=== PATIENT | female | born 1995 | race Caucasian/White ===

== ENCOUNTER → 2018-01-11 13:02 | Outpatient (CLI) | payer OTHER, MEDICAID, SELFPAY ==
--- NOTE | 2018-01-11 | DI.US.S_ITS ---
PROCEDURE: US OB <= 14 WEEKS FETUS INDICATIONS: SIZE AND DATING OUTSIDE/PRIOR DATING DATA: Last menstrual period (LMP): 11/16/17. LMP-based estimated date of delivery (JUAN): 08/23/18. First dating scan (date and location): Today's study. Estimated date of delivery (JUAN) from first dating scan: 07/29. TECHNIQUE: Real-time scanning was performed of the fetus and maternal pelvic organs, with image documentation. Endovaginal scanning was also performed to better visualize the fetus and maternal ovaries. COMPARISON: None. FINDINGS: Embryo: [place]-rump length of 0.54 mm correlates with a gestational age of 6 weeks 2 days Measurement variability in dating: +/- 4 weeks by LMP, +/- 7 days by mean sac diameter (use before 6 weeks gestation if crown-rump length not able to be measured), +/- 5 days by crown-rump length (up to 8 weeks 6 days gestation), +/- 7 days by crown-rump length (up to 13 weeks 6 days gestation). Maternal organs: Ovaries normal. Limited images through the kidneys demonstrate no hydronephrosis. IMPRESSION: At this early stage of gestation cardiac activity is not invariably detected and for this reason a demise has not been established. demise with a crown-rump length of 7 mm or greater is the threshold for establishing that circumstance. Correlation with quantitative beta hCG and followup OB ultrasound may be warranted in this circumstance. On review of real-time cine loop imaging nascent cardiac activity without organized heart rate is considered likely present. In my opinion there is a significant likelihood that a viable gestation is present but this has not been definitively established as of this study. Dictated by: Palmer Dumont M.D. on 01/11/2018 at 14:38 Approved by: Palmer Dumont M.D. on 01/11/2018 at 14:50
== END ==
PROVIDERS: Visit Provider Family Medicine
DX: Z36.89 Encounter for other specified antenatal screening (principal); Z3A.01 Less than 8 weeks gestation of pregnancy
CPT/HCPCS: 76801; 76817

== ENCOUNTER → 2018-01-25 08:01 | Outpatient (CLI) | payer OTHER, MEDICAID, SELFPAY ==
--- NOTE | 2018-01-25 | DI.US.S_ITS ---
PROCEDURE: US OB <= 14 WEEKS FETUS INDICATIONS: VIABILITY OUTSIDE/PRIOR DATING DATA: Last menstrual period (LMP): 11/16/17. LMP-based estimated date of delivery (JUAN): 08/23/18 assuming viable . First dating scan (date and location): 01/11/18. Estimated date of delivery (JUAN) from first dating scan: cardiac activity was not observed. TECHNIQUE: Real-time scanning was performed of the fetus and maternal pelvic organs, with image documentation. Endovaginal scanning was also performed to better visualize the fetus and maternal ovaries. COMPARISON: [facility], OB <= 14 WEEKS FETUS, 01/11/2018, 13:38. FINDINGS: Embryo: Prior crown-rump length 01/11/18 at 5 mm, current crown-rump length is 4 mm. cardiac activity is not observed. Measurement variability in dating: +/- 4 weeks by LMP, +/- 7 days by mean sac diameter (use before 6 weeks gestation if crown-rump length not able to be measured), +/- 5 days by crown-rump length (up to 8 weeks 6 days gestation), +/- 7 days by crown-rump length (up to 13 weeks 6 days gestation). Maternal organs: Ovaries not evaluated. Limited images through the kidneys demonstrate no hydronephrosis. IMPRESSION: demise. The intrauterine gestational sac is irregular, flaccid. Low-level internal echoes are present within the amniotic fluid. Dictated by: Palmer Dumont M.D. on 01/25/2018 at 11:01 Approved by: Palmer Dumont M.D. on 01/25/2018 at 11:25
== END ==
PROVIDERS: Visit Provider Family Medicine
DX: O02.1 Missed abortion (principal)
CPT/HCPCS: 76801; 76817

== ENCOUNTER 2018-06-10 17:49 | Emergency (ER) | payer OTHER, MEDICAID, SELFPAY ==
[2018-06-10 18:03] VITALS: BP 127/66; PULSE 66; RESP 16; TEMP 36.8; O2SAT 100; BMI 42.9
--- NOTE | 2018-06-10 18:13 | DI.US.S_ITS ---
PROCEDURE: US OB <= 14 WEEKS FETUS INDICATIONS: SPOTTING, CRAMPING OUTSIDE/PRIOR DATING DATA: Last menstrual period (LMP): 04/09/18. LMP-based estimated date of delivery (JUAN): 01/14/19. First dating scan (date and location): 06/10/18 Estimated date of delivery (JUAN) from first dating scan: 01/18/19. TECHNIQUE: Real-time scanning was performed of the fetus and maternal pelvic organs, with image documentation. COMPARISON: [facility], OB <= 14 WEEKS FETUS, 01/25/2018, 8:11. FINDINGS: Embryo: Examination of the pelvis shows single intrauterine gestational sac with fetus seen. heart rate is 171 beats per minute. [place]-rump length is 1.8 cm. Estimated gestational age based on current study is 8 weeks 2 days. 2.3 x 0.6 x 1.1 cm subchorionic hematoma is seen adjacent to gestational sac. Measurement variability in dating: +/- 4 weeks by LMP, +/- 7 days by mean sac diameter (use before 6 weeks gestation if crown-rump length not able to be measured), +/- 5 days by crown-rump length (up to 8 weeks 6 days gestation), +/- 7 days by crown-rump length (up to 13 weeks 6 days gestation). Maternal organs: Ovaries are visualized and are within normal limits.. Limited images through the kidneys demonstrate no hydronephrosis. IMPRESSION: Single live intrauterine . Estimated gestational age is 8 weeks 2 days. heart rate is 171 beats per minute. Small subchorionic hematoma as above. Dictated by: Kelechi Plummer M.D. on 06/10/2018 at 19:19 Approved by: Kelechi Plummer M.D. on 06/10/2018 at 19:21
[2018-06-10 18:31] LABS: Add Manual Diff / Slide Review NO; Basophils Absolute Auto 0 /uL (0-100); Basophils Percent Auto 0.4 % (0-2); Eosinophils Absolute Auto 100 /uL (0-450); Eosinophils Percent Auto 0.7 % (2-4); Lymphocytes Absolute Auto 1900 /uL (1100-4500); Mean Corpuscular HGB Conc 32.5 % (30-36); Mean Corpuscular Hemoglobin 27.6 PG (26-34); Mean Corpuscular Volume 84.9 fL (80-100); Monocytes Absolute Auto 700 /uL (0-900); Monocytes Percent Auto 6.4 % (3-14); Neutrophils Absolute Auto 7800 /uL (1500-7000); Neutrophils Percent Auto 74.5 % (50-75); Platelet Count 267 X10^3/uL (150-400); Red Blood Cell Count 4.01 X10^6/uL (4.0-5.2); Red Cell Distribution Width 15.6 % (11.6-14.8); White Blood Cell Count 10.4 X10^3/uL (4.5-11.0)
[2018-06-10 18:38] LABS: Alanine Aminotransferase 61 IU/L (9-52); Albumin 3.9 g/dL (3.5-5.0); Albumin Globulin Ratio 1.1 (1.0-2.8); Alkaline Phosphatase 47 U/L (38-126); Aspartate Aminotransferase 51 IU/L (14-36); BUN Creatinine Ratio 16.7 (6-22); Bilirubin Total 0.6 mg/dL (0.2-1.3); Blood Urea Nitrogen 10 mg/dL (7-17); Carbon Dioxide 25 mmol/L (22-32); Chloride 103 mmol/L (98-107); Estimated Glomerular Filt Rate > 60.0 mL/min (>60); Globulin 3.7 g/dL (1.7-4.1); Glucose 71 mg/dL (70-100); HEMOLYSIS < 15 (0-50); Potassium 3.7 mmol/L (3.4-5.1); Sodium 137 mmol/L (137-145); Total Protein 7.6 g/dL (6.3-8.2)
--- NOTE | 2018-06-10 19:17 | ED.PREGNANCY ---
[facility] - [facility] Last Filed: 06/10/18 19:44> General Chief complaint: OB/Uterine Contractions Stated complaint: 8 WEEKS PREG/BLEEDING Time Seen by Provider: 06/10/18 18:14 Source: patient and family Mode of arrival: ambulatory Limitations: no limitations History of Present Illness HPI Narrative: The patient is a 22-year-old female nonsmoker who presents with her mother for a chief complaint of vaginal bleeding during . She does have history of a miscarriage in January. She is approximately 8 weeks along, has a ultrasound scheduled for the 15 of June. She is followed by Dr. Serna. She states that she started noticing some spotting when wiping yesterday, and noted that increased today. She denies any over abdominal cramping but does complain of some hip pain. She denies any dysuria urgency or frequency. She states she has not passed clots. She states that she has not risk for sexually transmitted infections and recently tested negative as well as had a normal Pap smear. She denies any fevers nausea vomiting or diarrhea. She denies any lightheadedness or dizziness. Related Data Previous Rx's Medication Instructions Recorded cephalexin 500 mg PO BID #20 cap 06/10/18 Allergies Allergy/AdvReac Type Severity Reaction Status Date / Time No Known Drug Allergies Allergy Verified 06/10/18 19:35 Review of Systems [facility] Last Filed: 06/10/18 19:44> Review of Systems GENERAL: Denies chills, fatigue, malaise, fever, sweats. HEENT: Denies sinus pain, ear pain, sore throat, difficulty swallowing, dizziness. RESPIRATORY: Denies dyspnea, cough, wheezing, hemoptysis, sputum. CARDIOVASCULAR: Denies chest pain, palpitations, orthopnea, edema, GASTROINTESTINAL: Denies nausea, vomiting, abdominal pain, diarrhea, constipation, melena. : See HPI MUSCULOSKELETAL: denies weakness, joint pain, or bony pain SKIN: Denies rash, skin lesions, or other NEUROLOGIC: Denies weakness, headache, numbness, change in speech, confusion, seizures, incoordination. PSYCHIATRIC: No concerning psychosocial issues. 12 point review of systems is negative except for those stated above PMFSH - [facility] Last Filed: 06/10/18 19:44> Past Medical History miscarriage Jan 2018 Exam <KATHY Santos-BC - Last Filed: 06/10/18 19:44> Narrative Exam Narrative: GENERAL: This is an obese, well-developed patient, appears anxious HEAD: Atraumatic. Normocephalic. No temporal or scalp tenderness. EYES: Pupils equal round and reactive. Extraocular motions intact. No scleral icterus. No injection or drainage. ENT: Nose without bleeding, purulent drainage or septal hematoma. Throat without erythema, tonsillar hypertrophy or exudate. Uvula midline. Airway patent. NECK: Trachea midline. No JVD or lymphadenopathy. Supple, nontender, no meningeal signs. CARDIOVASCULAR: Regular rate and rhythm without murmurs, gallops, or rubs. RESPIRATORY: Clear to auscultation. Breath sounds equal bilaterally. No wheezes, rales, or rhonchi. GASTROINTESTINAL: Abdomen soft, non-tender, nondistended. No hepato-splenomegaly, or palpable masses. No guarding. active bowel sounds all 4 quadrants. EXTREMITIES: No clubbing, cyanosis, or edema. No joint tenderness, effusion, or edema noted. BACK: Nontender without deformity or crepitance. No flank tenderness. NEURO: AOx3. SKIN: No rash or erythema. Initial Vital Signs Initial Vital Signs: Vital Signs Temperature 98.2 F 06/10/18 18:03 Pulse Rate 66 06/10/18 18:03 Respiratory Rate 16 06/10/18 18:03 Blood Pressure 127/66 06/10/18 18:03 Pulse Oximetry 100 06/10/18 18:03 <Quin Prado MD - Last Filed: 06/10/18 23:09> Initial Vital Signs Initial Vital Signs: Vital Signs Temperature 98.2 F 06/10/18 18:03 Pulse Rate 66 06/10/18 18:03 Respiratory Rate 16 06/10/18 18:03 Blood Pressure 127/66 06/10/18 18:03 Pulse Oximetry 100 06/10/18 18:03 Course <LUANNE SantosBC - Last Filed: 06/10/18 19:44> Orders Ordered: ED Orders 06/10/18 18:13 US OB <= 14 weeks fetus Stat 06/10/18 18:20 ABO RH Type Stat Beta HCG, Quant [HCG Quantitative] Stat Complete Blood Count AUTO DIFF Stat Comprehensive Metabolic Panel Stat 06/10/18 19:15 Urine Culture Stat Urine Microscopic Stat Discontinued Medications Cephalexin HCl (Keflex) 500 mg PO NOW ONE Stop: 06/10/18 19:33 Last Admin: 06/10/18 19:35 Dose: 500 mg Vital Signs - 8 hr 06/10/18 18:03 06/10/18 19:30 Temperature 98.2 F 98.7 F Pulse Rate 66 83 Respiratory Rate 16 16 Blood Pressure 127/66 Blood Pressure [Left Arm] 125/69 Pulse Oximetry 100 100 <Quin Prado MD - Last Filed: 06/10/18 23:09> Orders Ordered: ED Orders 06/10/18 18:13 US OB <= 14 weeks fetus Stat 06/10/18 18:20 ABO RH Type Stat Beta HCG, Quant [HCG Quantitative] Stat Complete Blood Count AUTO DIFF Stat Comprehensive Metabolic Panel Stat 06/10/18 19:15 Urine Culture Stat Urine Microscopic Stat Discontinued Medications Cephalexin HCl (Keflex) 500 mg PO NOW ONE Stop: 06/10/18 19:33 Last Admin: 06/10/18 19:35 Dose: 500 mg Vital Signs - 8 hr 06/10/18 18:03 06/10/18 19:30 Temperature 98.2 F 98.7 F Pulse Rate 66 83 Respiratory Rate 16 16 Blood Pressure 127/66 Blood Pressure [Left Arm] 125/69 Pulse Oximetry 100 100 MDM - OB/Uterine Contractions <ANNIA Santos - Last Filed: 06/10/18 19:44> Lab Data Result diagrams: 06/10/18 18:20 06/10/18 18:20 Lab Results 06/10/18 06/10/18 06/10/18 Range/Units 18:20 18:20 18:20 WBC 10.4 (4.5-11.0) X10^3/uL RBC 4.01 (4.0-5.2) X10^6/uL Hgb 11.0 L (12.0-16.0) g/dL Hct 34.0 L (36-46) % MCV 84.9 (80-100) fL MCH 27.6 (26-34) PG MCHC 32.5 (30-36) % RDW 15.6 H (11.6-14.8) % Plt Count 267 (150-400) X10^3/uL Neut % (Auto) 74.5 (50-75) % Lymph % (Auto) 18.0 L (25-40) % [place] % (Auto) 6.4 (3-14) % Eos % (Auto) 0.7 L (2-4) % Baso % (Auto) 0.4 (0-2) % Neut # (Auto) 7800 H (7666-5580) /uL Lymph # (Auto) 1900 (0523-5866) /uL [place] # (Auto) 700 (0-900) /uL Eos # (Auto) 100 (0-450) /uL Baso # (Auto) 0 (0-100) /uL Sodium 137 (137-145) mmol/L Potassium 3.7 (3.4-5.1) mmol/L Chloride 103 (98-107) mmol/L Carbon Dioxide 25 (22-32) mmol/L BUN 10 (7-17) mg/dL Creatinine 0.60 (0.52-1.04) mg/dL Estimated GFR > 60.0 (>60) mL/min BUN/Creatinine Ratio 16.7 (6-22) Glucose 71 (70-100) mg/dL Calcium 9.0 (8.4-10.2) mg/dL Total Bilirubin 0.6 (0.2-1.3) mg/dL AST 51 H (14-36) IU/L ALT 61 H (9-52) IU/L Alkaline Phosphatase 47 (38-126) U/L Total Protein 7.6 (6.3-8.2) g/dL Albumin 3.9 (3.5-5.0) g/dL Globulin 3.7 (1.7-4.1) g/dL Albumin/Globulin Ratio 1.1 (1.0-2.8) HCG, Quant 18102 mIU/mL Urine RBC (0-5/HPF) Urine WBC (0-5/HPF) Ur Squamous Epith Cells Ur Transition Epith Cell (0-5/HPF) Urine Bacteria (None) Ur Culture Indicated? Blood Type 06/10/18 06/10/18 Range/Units 18:20 19:15 WBC (4.5-11.0) X10^3/uL RBC (4.0-5.2) X10^6/uL Hgb (12.0-16.0) g/dL Hct (36-46) % MCV (80-100) fL MCH (26-34) PG MCHC (30-36) % RDW (11.6-14.8) % Plt Count (150-400) X10^3/uL Neut % (Auto) (50-75) % Lymph % (Auto) (25-40) % [place] % (Auto) (3-14) % Eos % (Auto) (2-4) % Baso % (Auto) (0-2) % Neut # (Auto) (1999-5118) /uL Lymph # (Auto) (8438-7499) /uL [place] # (Auto) (0-900) /uL Eos # (Auto) (0-450) /uL Baso # (Auto) (0-100) /uL Sodium (137-145) mmol/L Potassium (3.4-5.1) mmol/L Chloride (98-107) mmol/L Carbon Dioxide (22-32) mmol/L BUN (7-17) mg/dL Creatinine (0.52-1.04) mg/dL Estimated GFR (>60) mL/min BUN/Creatinine Ratio (6-22) Glucose (70-100) mg/dL Calcium (8.4-10.2) mg/dL Total Bilirubin (0.2-1.3) mg/dL AST (14-36) IU/L ALT (9-52) IU/L Alkaline Phosphatase (38-126) U/L Total Protein (6.3-8.2) g/dL Albumin (3.5-5.0) g/dL Globulin (1.7-4.1) g/dL Albumin/Globulin Ratio (1.0-2.8) HCG, Quant mIU/mL Urine RBC 0-1/hpf (0-5/HPF) Urine WBC 5-10/hpf H (0-5/HPF) Ur Squamous Epith Cells 1-5 /hpf Ur Transition Epith Cell 1-5/hpf (0-5/HPF) Urine Bacteria Few (2-10) H (None) Ur Culture Indicated? Specimen cultured Blood Type A Positive Urine Dip Bedside Urine Glucose Negative Bedside Urine Bilirubin - Negative Bedside Urine Ketone - Negative Urine Specific [place] 1.015 Bedside Urine Occult Blood + Bedside Urine pH 6.0 Bedside Urine Protein - Negative Bedside Urine Urobilinogen - Negative Bedside Urine Nitrite - Negative Bedside Urine Leukocytes +/- 15 Esterase Imaging Data pelvic us: Radiologist's impression: [address] [address] Ultrasound Report Signed Patient: Kailyn Naranjo EMR#: [id number] : 1995Acct:[id number] Age/Sex: te of Service: 06/10/18 Loc: ED Accession Number: [id number] Procedure: OB <= 14 weeks fetus Ordering Provider: Quin Prado MD PROCEDURE: OB <= 14 WEEKS FETUS INDICATIONS: SPOTTING, CRAMPING OUTSIDE/PRIOR DATING DATA: Last menstrual period (LMP): 04/09/18. LMP-based estimated date of delivery (JUAN): 01/14/19. First dating scan (date and location): 06/10/18 Estimated date of delivery (JUAN) from first dating scan: 01/18/19. TECHNIQUE: Real-time scanning was performed of the fetus and maternal pelvic organs, with image documentation. COMPARISON: [facility], OB <= 14 WEEKS FETUS, 01/25/2018, 8:11. FINDINGS: Embryo: Examination of the pelvis shows single intrauterine gestational sac with fetus seen. heart rate is 171 beats per minute. [place]-rump length is 1.8 cm. Estimated gestational age based on current study is 8 weeks 2 days. 2.3 x 0.6 x 1.1 cm subchorionic hematoma is seen adjacent to gestational sac. Measurement variability in dating: +/- 4 weeks by LMP, +/- 7 days by mean sac diameter (use before 6 weeks gestation if crown-rump length not able to be measured), +/- 5 days by crown-rump length (up to 8 weeks 6 days gestation), +/- 7 days by crown-rump length (up to 13 weeks 6 days gestation). Maternal organs: Ovaries are visualized and are within normal limits.. Limited images through the kidneys demonstrate no hydronephrosis. IMPRESSION: Single live intrauterine . Estimated gestational age is 8 weeks 2 days. heart rate is 171 beats per minute. Small subchorionic hematoma as above. Dictated by: Kelechi Plummer M.D. on 06/10/2018 at 19:19 Approved by: Kelechi Plummer M.D. on 06/10/2018 at 19:[address] [facility] Narrative Medical decision making narrative: The patient is a 22-year-old female who is 8 weeks who presents with some vaginal bleeding upon wiping from urination. She was found to have bacteria in her urine, so I am treating her for urinary tract infection with cephalexin. She was also found to have a subchorionic hematoma upon ultrasound. However she has a living intrauterine with heart rate 171. She was much relieved to find her intrauterine . I encouraged her to follow up with Dr. Serna. I discussed return precautions of severe vaginal bleeding. I also encouraged her to watch for signs of worsening urinary tract infection including flank pain and fever. Patient and her family had no questions or concerns upon discharge. <Quin Prado MD - Last Filed: 06/10/18 23:09> Lab Data Lab Results 06/10/18 06/10/18 06/10/18 Range/Units 18:20 18:20 18:20 WBC 10.4 (4.5-11.0) X10^3/uL RBC 4.01 (4.0-5.2) X10^6/uL Hgb 11.0 L (12.0-16.0) g/dL Hct 34.0 L (36-46) % MCV 84.9 (80-100) fL MCH 27.6 (26-34) PG MCHC 32.5 (30-36) % RDW 15.6 H (11.6-14.8) % Plt Count 267 (150-400) X10^3/uL Neut % (Auto) 74.5 (50-75) % Lymph % (Auto) 18.0 L (25-40) % [place] % (Auto) 6.4 (3-14) % Eos % (Auto) 0.7 L (2-4) % Baso % (Auto) 0.4 (0-2) % Neut # (Auto) 7800 H (4107-1980) /uL Lymph # (Auto) 1900 (0885-7081) /uL [place] # (Auto) 700 (0-900) /uL Eos # (Auto) 100 (0-450) /uL Baso # (Auto) 0 (0-100) /uL Sodium 137 (137-145) mmol/L Potassium 3.7 (3.4-5.1) mmol/L Chloride 103 (98-107) mmol/L Carbon Dioxide 25 (22-32) mmol/L BUN 10 (7-17) mg/dL Creatinine 0.60 (0.52-1.04) mg/dL Estimated GFR > 60.0 (>60) mL/min BUN/Creatinine Ratio 16.7 (6-22) Glucose 71 (70-100) mg/dL Calcium 9.0 (8.4-10.2) mg/dL Total Bilirubin 0.6 (0.2-1.3) mg/dL AST 51 H (14-36) IU/L ALT 61 H (9-52) IU/L Alkaline Phosphatase 47 (38-126) U/L Total Protein 7.6 (6.3-8.2) g/dL Albumin 3.9 (3.5-5.0) g/dL Globulin 3.7 (1.7-4.1) g/dL Albumin/Globulin Ratio 1.1 (1.0-2.8) HCG, Quant 61043 mIU/mL Urine RBC (0-5/HPF) Urine WBC (0-5/HPF) Ur Squamous Epith Cells Ur Transition Epith Cell (0-5/HPF) Urine Bacteria (None) Ur Culture Indicated? Blood Type 06/10/18 06/10/18 Range/Units 18:20 19:15 WBC (4.5-11.0) X10^3/uL RBC (4.0-5.2) X10^6/uL Hgb (12.0-16.0) g/dL Hct (36-46) % MCV (80-100) fL MCH (26-34) PG MCHC (30-36) % RDW (11.6-14.8) % Plt Count (150-400) X10^3/uL Neut % (Auto) (50-75) % Lymph % (Auto) (25-40) % [place] % (Auto) (3-14) % Eos % (Auto) (2-4) % Baso % (Auto) (0-2) % Neut # (Auto) (5253-1061) /uL Lymph # (Auto) (4936-6859) /uL [place] # (Auto) (0-900) /uL Eos # (Auto) (0-450) /uL Baso # (Auto) (0-100) /uL Sodium (137-145) mmol/L Potassium (3.4-5.1) mmol/L Chloride (98-107) mmol/L Carbon Dioxide (22-32) mmol/L BUN (7-17) mg/dL Creatinine (0.52-1.04) mg/dL Estimated GFR (>60) mL/min BUN/Creatinine Ratio (6-22) Glucose (70-100) mg/dL Calcium (8.4-10.2) mg/dL Total Bilirubin (0.2-1.3) mg/dL AST (14-36) IU/L ALT (9-52) IU/L Alkaline Phosphatase (38-126) U/L Total Protein (6.3-8.2) g/dL Albumin (3.5-5.0) g/dL Globulin (1.7-4.1) g/dL Albumin/Globulin Ratio (1.0-2.8) HCG, Quant mIU/mL Urine RBC 0-1/hpf (0-5/HPF) Urine WBC 5-10/hpf H (0-5/HPF) Ur Squamous Epith Cells 1-5 /hpf Ur Transition Epith Cell 1-5/hpf (0-5/HPF) Urine Bacteria Few (2-10) H (None) Ur Culture Indicated? Specimen cultured Blood Type A Positive Urine Dip Bedside Urine Glucose Negative Bedside Urine Bilirubin - Negative Bedside Urine Ketone - Negative Urine Specific [place] 1.015 Bedside Urine Occult Blood + Bedside Urine pH 6.0 Bedside Urine Protein - Negative Bedside Urine Urobilinogen - Negative Bedside Urine Nitrite - Negative Bedside Urine Leukocytes +/- 15 Esterase Discharge Plan Departure Patient Disposition: Home Clinical Impression: Threatened miscarriage UTI (urinary tract infection) during Qualifiers: Trimester: first trimester Qualified Code(s): O23.41 - Unspecified infection of urinary tract in , first trimester Subchorionic hematoma in first trimester Qualifiers: Fetus number: single or unspecified fetus Qualified Code(s): O41.8X10 - Other specified disorders of amniotic fluid and membranes, first trimester, not applicable or unspecified Discharge Date/Time: 06/10/18 19:59 Interventions: ED Discharge Assessment Last Done: 06/10/18 20:01 Instructions: DI for Threatened , DI for Urinary Tract Infection (UTI), DI for Vaginal Bleeding During Activity Restrictions/Additional Instructions: You came in today . We found that you have bacteria in your urine so I am initiating treatment with an antibiotic. We are sending a urine culture to make sure that the antibiotic is an appropriate selection for the bacteria that you have. We also found on ultrasound that you have a subchorionic hematoma. Please follow up with Dr. Serna. Please call their office on Monday. Come back to the emergency department for any acute concerns such as severe vaginal bleeding or dizziness. Please monitor for signs of a worsening urinary tract infection including fever or flank pain and be evaluated if any of these occur. Prescriptions: New cephalexin 500 mg capsule 500 mg PO BID Qty: 20 RF: 0 Referrals: Taty Serna MD [Primary Care Provider] -
[2018-06-10 19:20] LABS: HCG Quantitative /Beta subunit 63335 mIU/mL
[2018-06-10 19:29] LABS: Bacteria Urine Few (2-10); Culture Indicated Urine Specimen Cultured; RBC Urine 0-1/HPF (0-5/HPF); Squamous Epithelial Cell Urine 1-5 /HPF; Transitional Epi Cells Urine 1-5/HPF (0-5/HPF); WBC Urine 5-10/HPF (0-5/HPF)
[2018-06-10 19:30] VITALS: BP 125/69; PULSE 83; RESP 16; TEMP 37.1; O2SAT 100
[2018-06-10] MEDS: cephALEXin 250 MG CAPSULE 500 MG PO (19:35)
== END 2018-06-10 19:59 | disposition home or self-care (01) ==
PROVIDERS: Emergency Medicine; Emergency Provider Nurse Practitioner Family; Family Provider Specialist
DX: O23.41 Unspecified infection of urinary tract in pregnancy, first trimester (principal)
CPT/HCPCS: 36415; 76801; 76817; 80053; 81003; 81015; 84702; 85025; 86900; 86901; 87086; 99282; 99284

== ENCOUNTER → 2018-06-15 15:49 | Outpatient (CLI) | payer OTHER, MEDICAID, SELFPAY ==
[2018-06-15 19:42] LABS: Urine N gonorrhoeae NOT DETECTED
[2018-06-15 19:47] LABS: Urine Chlamydia NOT DETECTED
== END ==
PROVIDERS: Family Provider Specialist; PCP Family Medicine; Visit Provider Specialist
DX: Z34.81 Encounter for supervision of other normal pregnancy, first trimester (principal); Z3A.09 9 weeks gestation of pregnancy
CPT/HCPCS: 87491; 87591

== ENCOUNTER → 2018-07-23 14:28 | Outpatient (CLI) | payer OTHER, MEDICAID, SELFPAY ==
[2018-07-23 14:58] LABS: Add Manual Diff / Slide Review NO; Basophils Absolute Auto 0 /uL (0-100); Basophils Percent Auto 0.5 % (0-2); Eosinophils Absolute Auto 100 /uL (0-450); Eosinophils Percent Auto 1.4 % (2-4); Hematocrit 34.8 % (36-46); Hemoglobin 11.6 g/dL (12.0-16.0); Lymphocytes Absolute Auto 1500 /uL (1100-4500); Mean Corpuscular HGB Conc 33.4 % (30-36); Mean Corpuscular Hemoglobin 28.7 PG (26-34); Monocytes Absolute Auto 400 /uL (0-900); Monocytes Percent Auto 4.6 % (3-14); Neutrophils Absolute Auto 6600 /uL (1500-7000); Neutrophils Percent Auto 76.5 % (50-75); Platelet Count 246 X10^3/uL (150-400); Red Blood Cell Count 4.05 X10^6/uL (4.0-5.2); Red Cell Distribution Width 15.7 % (11.6-14.8); White Blood Cell Count 8.7 X10^3/uL (4.5-11.0)
[2018-07-23 16:14] LABS: Hepatitis B Surface Antigen NEGATIVE s/c (NEGATIVE); Rubella Antibody IgG 4.4 IU/mL (>15)
[2018-07-23 16:22] LABS: HIV 1 and 2 Antibody NEGATIVE (NEGATIVE); Hep C Virus Ab w/Reflex Quant NEGATIVE s/c (NEGATIVE)
[2018-07-23 17:46] LABS: Appearance Urine UA CLEAR; Bilirubin Urine UA NEGATIVE (NEGATIVE); Color Urine UA YELLOW; Glucose Urine UA NEGATIVE (Negative); Ketones Urine UA NEGATIVE (NEGATIVE); Leukocyte Esterase Urine UA NEGATIVE (NEGATIVE); Nitrite Urine UA NEGATIVE (Negative); Occult Blood Urine UA NEGATIVE (Negative); Protein Urine UA NEGATIVE (Negative); Specific Gravity Urine UA 1.025 (1.000-1.035); Urobilinogen Urine UA 0.2 E.U./dL (0.2)
[2018-07-26 13:08] LABS: RPR Screen Nonreactive (Nonreactive)
== END ==
PROVIDERS: PCP Family Medicine; Visit Provider Specialist
DX: Z34.91 Encounter for supervision of normal pregnancy, unspecified, first trimester (principal)
CPT/HCPCS: 36415; 80055; 81003; 86703; 86787; 86803; 86850; 86900; 86901; 87077; 87086; 87147

== ENCOUNTER → 2018-08-28 13:51 | Outpatient (CLI) | payer OTHER, MEDICAID, SELFPAY ==
--- NOTE | 2018-08-28 13:54 | DI.US.S_ITS ---
PROCEDURE: US OB >= 14 WEEKS FETUS INDICATIONS: ANATOMY SCAN OUTSIDE/PRIOR DATING DATA: Last menstrual period (LMP): 04/09/18. LMP-based estimated date of delivery (JUAN): 01/14/19. First dating scan (date and location): 06/10/18. Estimated date of delivery (JUAN) from first dating scan: 01/18/19. TECHNIQUE: Real-time scanning was performed of the fetus, with image documentation and biometric measurements. Endovaginal scanning: No COMPARISON: [facility], OB <= 14 WEEKS FETUS, 06/10/2018, 18:45. [facility], OB >= 14 WEEKS FETUS, 08/13/2018, 11:55. FINDINGS: General: A single living intrauterine gestation is present. Presentation: Vertex. Placenta: Placental position is posterior lateral, without previa Amniotic fluid index: 10.2 cm cm, normal range is 5-24 cm. heart rate: 155 beats per minute. Maternal cervical canal: 4.1 cm long. Normal lower limit is 2.5 cm. biometrics: Biparietal diameter: 20 weeks 1 day Head circumference: 20 weeks 0 days Abdominal circumference: 20 weeks 5 days Femur length: 19 weeks 1 day Estimated gestational age from initial scan: 19 weeks 4 days Composite gestational age from present scan: 20 weeks 0 days Estimated weight and percentile: 327 g; 72nd percentile Measurement variability for biometric dating: +/- 7 days from 14 weeks to 15 weeks 6 days gestation, +/- 10 days from 16 weeks to 21 weeks 6 days gestation, +/- 2 weeks from 22 weeks to 27 weeks 6 days gestation, +/- 3 weeks for 28 weeks gestation or later. weight reference: 4500 g or EFW >90/95% is considered macrosomia or large for gestational age. EFW <10% is small for gestational age. EFW 5% or less is considered intra-uterine growth restriction. Anatomic survey: Neuro: Ventricles are non-dilated at less than 10 mm. Cisterna magna is normal at 3-11 mm. Cerebellum is normal in size and morphology. Nuchal skin fold: Normal at less than 6 mm between 14-21 weeks gestational age. Face: Not well-visualized. Spine: No evidence for spina bifida. Heart: Not well-visualized. Diaphragm: Diaphragm is intact. Stomach: Left-sided stomach is present. Kidneys: No hydronephrosis. Normal is less than 5 mm in 2nd trimester, less than 7 mm in 3rd trimester. Cord: 3-vessel cord has orthotopic insertion. Marginal placental cord insertion with the insertion site less than 1 cm from the placental margin. Bladder: Normal in size. Extremities: Lower extremity suboptimally visualized. IMPRESSION: 1. Single living IUP redemonstrated and interval growth is normal. 2. Limited anatomic survey as above. Followup recommended. 3. Marginal placental cord insertion site. Dictated by: Sohail PRINCE Interpreted: Néstor Good MD on 08/28/2018 at 15:41 Approved by: Néstro Good M.D. on 08/29/2018 at 9:50
== END ==
PROVIDERS: PCP Family Medicine; Visit Provider Specialist
DX: Z34.82 Encounter for supervision of other normal pregnancy, second trimester (principal); Z3A.20 20 weeks gestation of pregnancy
CPT/HCPCS: 76811

== ENCOUNTER → 2018-09-12 13:47 | Outpatient (CLI) | payer OTHER, MEDICAID, SELFPAY ==
--- NOTE | 2018-09-12 13:49 | DI.US.S_ITS ---
PROCEDURE: US OB FOLLOW UP INDICATIONS: Incomplete Anatomy Scan F/U needed OUTSIDE/PRIOR DATING DATA: Last menstrual period (LMP): 04/09/18. LMP-based estimated date of delivery (JUAN): 01/14/19. First dating scan (date and location): 06/10/18. Estimated date of delivery (JUAN) from first dating scan: 01/18/19. TECHNIQUE: Real-time scanning was performed of the fetus, with image documentation and biometric measurements. Endovaginal scanning: Not needed for this study COMPARISON: None. FINDINGS: General: A single living intrauterine gestation is present. Presentation: Vertex. Placenta: Placental position is posterior, without previa. Amniotic fluid index: 16.7 cm, normal range is 5-24 cm. heart rate: 153 beats per minute. Maternal cervical canal: 3.6 cm long. Normal lower limit is 2.5 cm. Other: Nuchal region not well seen, left ventricular outflow tract not well seen, cord insertion appears to be approximately 2.7 cm from the placental tip. Garry facial area well-visualized by this study. IMPRESSION: Improved visualization of the facial area, neck region and left ventricular outflow tract not well-seen. Cord insertion within 2.7 cm of the placental tip. Dictated by: Palmer Dumont M.D. on 09/12/2018 at 17:04 Approved by: Palmer Dumont M.D. on 09/12/2018 at 17:08
== END ==
PROVIDERS: PCP Family Medicine; Visit Provider Specialist
DX: Z36.2 Encounter for other antenatal screening follow-up (principal); Z3A.20 20 weeks gestation of pregnancy
CPT/HCPCS: 76816

== ENCOUNTER → 2018-09-20 10:12 | Outpatient (CLI) | payer OTHER, MEDICAID, SELFPAY ==
[2018-09-20 12:17] LABS: Hematocrit 33.4 % (36-46); Hemoglobin 11.2 g/dL (12.0-16.0)
[2018-09-20 12:51] LABS: GTT (PREG) 1 Hour PP 50gm Dose 111 mg/dL (76-139)
== END ==
PROVIDERS: PCP Family Medicine; Visit Provider Specialist
DX: Z34.82 Encounter for supervision of other normal pregnancy, second trimester (principal); Z3A.26 26 weeks gestation of pregnancy
CPT/HCPCS: 36415; 82950; 85014; 85018

== ENCOUNTER 2018-12-13 22:59 | Outpatient (CLI) | payer OTHER, MEDICAID, SELFPAY ==
[2018-12-13 23:35] LABS: Appearance Urine UA CLEAR; Bilirubin Urine UA NEGATIVE (NEGATIVE); Color Urine UA YELLOW; Glucose Urine UA NEGATIVE (Negative); Ketones Urine UA 2+ (NEGATIVE); Leukocyte Esterase Urine UA NEGATIVE (NEGATIVE); Nitrite Urine UA NEGATIVE (Negative); Occult Blood Urine UA NEGATIVE (Negative); Protein Urine UA 1+ (Negative); Specific Gravity Urine UA 1.025 (1.000-1.035); Urobilinogen Urine UA 0.2 E.U./dL (0.2)
[2018-12-13 23:44] LABS: pH Urine UA 5.5 (4.5-8.0)
[2018-12-13 23:45] LABS: Squamous Epithelial Cell Urine 5-10 /HPF (0-5/HPF)
[2018-12-13 23:47] LABS: Bacteria Urine Moderate (10-30); Calcium Oxalate Crystals Urine Few; Culture Indicated Urine Cult Not Indicated; Mucus Urine 2+ (Negative); RBC Urine 0-1/HPF (0-5/HPF); WBC Urine 0-1/HPF (0-5/HPF)
--- NOTE | 2018-12-14 06:55 | PM.OBTRLD ---
Visit Information Visit Information Date of evaluation: 12/13/18 Primary OB Provider: Taty Serna Reason for Evaluation: Yes rule out labor Vital Signs Vital Signs: Blood pressure 132/61, temperature 96.3?, pulse of 83 PFSH Social History Smoking Status: Current some day smoker Social History Smoking Status: Current some day smoker Objective Labs Labs: Laboratory Results - last 24 hr 12/13/18 23:15 Urine Color Yellow Urine Appearance Clear Urine pH 5.5 Ur Specific [place] 1.025 Urine Protein 1+ H Urine Glucose (UA) Negative Urine Ketones 2+ H Urine Occult Blood Negative Urine Nitrate Negative Urine Bilirubin Negative Urine Urobilinogen 0.2 Ur Leukocyte Esterase Negative Urine RBC 0-1/hpf Urine WBC 0-1/hpf Ur Squamous Epith Cells 5-10 /hpf H Calcium Oxalate Crystal Few H Urine Bacteria Moderate (10-30) H Urine Mucus 2+ H Ur Culture Indicated? Cult not indicated Evaluation Evaluation Baseline heart rate: 135 Variability: Moderate (11-25) monitor accelerations: Present monitor decelerations: Absent Contraction Frequency (minutes): 10 Uterine Contraction Intensity: Mild Category of Tracing: I Cervical dilation (cm): 2 Cervical effacement (%): 70 station: -2 Laboratory results: Laboratory Tests 12/13/18 23:15 Urine Color Yellow Urine Appearance Clear Urine pH 5.5 Ur Specific [place] 1.025 Urine Protein 1+ H Urine Glucose (UA) Negative Urine Ketones 2+ H Urine Occult Blood Negative Urine Nitrate Negative Urine Bilirubin Negative Urine Urobilinogen 0.2 Ur Leukocyte Esterase Negative Urine RBC 0-1/hpf Urine WBC 0-1/hpf Ur Squamous Epith Cells 5-10 /hpf H Calcium Oxalate Crystal Few H Urine Bacteria Moderate (10-30) H Urine Mucus 2+ H Ur Culture Indicated? Cult not indicated Diagnosis, Plan/Disposition Final Diagnosis (1) Premature uterine contractions causing threatened premature labor in third trimester: Current Visit: No Status: Acute (2) 35 weeks gestation of : Current Visit: No Status: Acute Plan/Disposition Plan: Patient with premature contractions but not in active labor. Patient to push fluids. OB Disposition: home
== END 2018-12-14 00:10 | disposition home or self-care (01) ==
LOC: OB 12-18 13:43
PROVIDERS: Family Provider Specialist; PCP Specialist; Visit Provider Specialist
DX: O47.03 False labor before 37 completed weeks of gestation, third trimester (principal); Z3A.35 35 weeks gestation of pregnancy
CPT/HCPCS: 59025; 81001; G0378; G0379

== ENCOUNTER 2019-01-01 11:03 | Outpatient (CLI) | payer OTHER, MEDICAID, SELFPAY | END 2019-01-01 12:45 | disposition home or self-care (01) | LOC: LABOR 11:43 → OB 01-07 10:12 | PROVIDERS: PCP Specialist; Visit Provider Specialist | DX: Z34.03 Encounter for supervision of normal first pregnancy, third trimester (principal); Z3A.38 38 weeks gestation of pregnancy | CPT/HCPCS: 59025; 59050; G0378; G0379 ==

== ENCOUNTER 2019-01-05 07:21 | Inpatient (IN) | payer OTHER, MEDICAID, SELFPAY ==
--- NOTE | 2019-01-05 08:25 | PM.OBHP.1 ---
OB HPI History of Present Condition Chief complaint: observation Narrative: Kailyn Naranjo is a 23 year old @ 38 and 5 presenting with ruptured membranes for clear fluid at 5:30 a.m.. She reports crampy contractions since then, now every 2-3 minute, no vaginal bleeding, good movement, and no other complaints obstetrical or otherwise. The patient reports an uncomplicated , has an otherwise uncomplicated history. 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 Fam Hx: Denies significant NKDA Meds: Prenatals Evaluation Evaluation Baseline heart rate: 140 Variability: Average (6-10) monitor accelerations: Present monitor decelerations: Absent Contraction Frequency (minutes): 2 Uterine Contraction Intensity: Moderate Category of Tracing: I Cervical dilation (cm): 3 Cervical effacement (%): 80 station: -2 Laboratory results: A+, Ab neg, RPR neg, HIV neg, rubella non-immune, GC/Chlam negative Non-invasive Membranes Rupture Test: positive Comments: 126/68, 100 beats per minute, 35.7 C [facility] Medical History Depression with anxiety (Acute) Eczema (Acute) 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) Surgical History H/O dilation and curettage (Acute) Social History Smoking Status: Current some day smoker Meds Home Medications and Allergies Home Medications Medication Instructions Recorded Confirmed Type prenat.vits,rickey,bke-nwew-ijqeo 1 tab PO DAILY 06/11/18 12/13/18 History breast pump #1 each 11/08/18 12/13/18 Rx Allergies Allergy/AdvReac Type Severity Reaction Status Date / Time No Known Drug Allergies Allergy Verified 06/10/18 19:35 Review of Systems Review of Systems Narrative: Patient appears comfortable, ambulating about Cardiovascular Cardiovascular: Reports system reviewed; no additional complaints, except as documented Respiratory Respiratory: Reports system reviewed and no additional complaints, except as documented Gastrointestinal Gastrointestinal: Reports system reviewed and no additional complaints, except as documented Genitourinary Genitourinary: Reports as per HPI Exam Const General: cooperative, healthy appearing and comfortable External Female Exam: external appearance normal Manual OB Exam: dilated 3, effaced 75% and station -2 Presentation: vertex Estimated Weight (lbs): 8 Amniotic Fluid: clear Objective Labs Result Diagrams: 01/05/19 09:45 Assessment and Plan Assessment and Plan Assessment and Plan narrative: This patient presents with a story suggestive of ruptured membranes, and positive AmniSure. She is andrey frequently on her own, and will ambulate and use the birthing ball prior to induction with Pitocin if necessary. -penicillin for GBS positive -intermittent monitoring per protocol -routine intrapartum care. Time Spent with Patient Total time spent with greater than 50% in coordination of care (as documented) at patient's floor/unit and/or counseling patient:: 25 - 35 minutes
[2019-01-05] MEDS: PENICILLIN G POTASSIUM 5,000,000 UNIT in DEXTROSE 5% IN WATER 250 ML IV (09:45)
[2019-01-05 10:02] LABS: Add Manual Diff / Slide Review NO; Basophils Absolute Auto 100 /uL (0-100); Basophils Percent Auto 0.6 % (0-2); Eosinophils Absolute Auto 100 /uL (0-450); Eosinophils Percent Auto 1.1 % (2-4); Hematocrit 33.3 % (36-46); Lymphocytes Absolute Auto 1600 /uL (1100-4500); Lymphocytes Percent Auto 12.2 % (25-40); Mean Corpuscular HGB Conc 33.1 % (30-36); Mean Corpuscular Hemoglobin 27.8 PG (26-34); Monocytes Absolute Auto 700 /uL (0-900); Monocytes Percent Auto 5.5 % (3-14); Neutrophils Absolute Auto 10800 /uL (1500-7000); Neutrophils Percent Auto 80.6 % (50-75); Platelet Count 309 X10^3/uL (150-400); Red Blood Cell Count 3.96 X10^6/uL (4.0-5.2); Red Cell Distribution Width 14.7 % (11.6-14.8); White Blood Cell Count 13.4 X10^3/uL (4.5-11.0)
[2019-01-05 10:56] VITALS: BP 120/78
[2019-01-05] MEDS: PENICILLIN G POTASSIUM 3,000,000 UNIT/50 ML FROZ.PIGGY 100 UNIT IV ×3 (13:55→21:35)
--- NOTE | 2019-01-05 14:44 | PM.OBPNLAB ---
Date/Time Date Patient Seen: 01/05/19 Time Patient Seen: 14:45 Pain Control Pain control: tolerating well Pelvic Exam Dilation (cm): 3 Effacement (%): 80 station: -2 Amniotic membrane status: Ruptured (SROM 0530 01/05) Contractions Contractions on admission: regular Pitocin rate (mU/min): 3 Contraction frequency (min): 2 Contraction duration (min): 1 Contraction pattern: Regular Contraction phase: Resting Contraction intensity: Moderate Status status: Category l Heart Rate Baseline: 125 Monitor Accelerations: Absent Monitor Decelerations: Absent Monitor Variability: Moderate Assessment and Plan Assessment: induction ongoing Plan: begin patient augmentation Comments: This patient is a 23yo P0 at 38 weeks, admitted after SROM at home confirmed by amnisure. Despite her contractions, the patient has not made cervical change, and will be augmented with pitocin per protocol. - VSS
[2019-01-05] MEDS: ACETAMINOPHEN 325 MG TABLET 650 MG PO (14:59)
[2019-01-05] MEDS: OXYTOCIN PREMIX 30 UNIT/500 ML PLAST..BAG IV (15:00)
--- NOTE | 2019-01-05 18:29 | PM.OBPNLAB ---
Date/Time Date Patient Seen: 01/05/19 Time Patient Seen: 18:29 Pain Control Pain control: epidural Comments: Patient now in midst of pitocin induction Pelvic Exam Dilation (cm): 5 Effacement (%): 90 station: -2 Amniotic membrane status: Ruptured (SROM 0530 01/05) Contractions Contractions on admission: regular Monitor mode: External Pitocin rate (mU/min): 3 Contraction frequency (min): 2 Contraction pattern: Regular Contraction phase: Resting Contraction intensity: Moderate Status status: Category l Heart Rate Baseline: 130 Monitor Accelerations: Present Monitor Decelerations: Absent Monitor Variability: Moderate Comments: External monitoring intermittently limited by position and body. Assessment and Plan Assessment: induction ongoing Plan: continuous present management
[2019-01-05] MEDS: CALCIUM CARBONATE 500 MG TAB 1000 MG PO (21:01)
--- NOTE | 2019-01-05 21:12 | PM.OBPNLAB ---
Date/Time Date Patient Seen: 01/05/19 Time Patient Seen: 21:12 Pain Control Pain control: epidural Comments: Epidural somewhat inffective Pelvic Exam Dilation (cm): 8 Effacement (%): 100 station: -2 Amniotic membrane status: Ruptured (SROM 0530 01/05) Contractions Monitor mode: External Pitocin rate (mU/min): 2 Contraction frequency (min): 2 Contraction pattern: Regular Contraction phase: Resting Contraction intensity: Moderate Status status: Category l Heart Rate Baseline: 120 Monitor Accelerations: Present Monitor Decelerations: Absent Monitor Variability: Moderate Assessment and Plan Assessment: active labor Plan: continuous present management Comments: Patient continues to make cervical change, though still high station. Will continue current management.
[2019-01-05] MEDS: ONDANSETRON 4 MG/2 ML INJ IV (22:13)
--- NOTE | 2019-01-06 02:17 | PM.OBPRVD ---
 Events: Premature Rupture of Membrane Labor & Delivery Delivery date: 01/06/19 Intrapartal events: Acceleration and Deceleration Cervical ripening method: none Induction method: per pitocin protocol Delivery augmentation: pitocin Delivery monitor: external FHT Route of delivery: L&D Laceration Description: Periurethral - 1st Degree, Perineal - 2nd Degree and Vaginal - 1st Degree Delivery repair: vicryl Estimated blood loss (mL): 50 Anesthesia type: Epidural Narrative: This patient presented after SROM at home at 0530 on 01/05 for clear fluid, confirmed with amnisure. She did not progress on her own despite q2 contractions, and was induced with pitocin. She progressed without complication, and was delivered of a healthy baby boy at 0137 on 01/06. Apgars 8+9, no nuchal cord, shoulders and placenta delivered with ease. A shallow second degree perineal laceration was repaired in the usual fashion, and several shallow 1st degree lacerations were repaired to achieve hemostasis. The final 10 minutes of the pushing stage were c/b variable decelerations, but there were no other intrapartum complications. [place] Baby 1: Infant gender: Male Presentation: vertex Placenta delivery description: Spontaneous cord vessel description: Clamped/Cut (Delayed cord clamping) score (1 min): 8 score (5 min): 9 Narrative: ADDISON presentation Plan for aftercare: Routine care.
[2019-01-06] MEDS: IBUPROFEN 600 MG TABLET PO ×2 (04:24→23:58)
[2019-01-06] MEDS: NALOXONE 0.4 MG/ML VIAL 0.2 MG IV ×2 (05:43→06:04)
--- NOTE | 2019-01-06 10:33 | P.PNOB_ITS ---
Subjective - OB Subjective Patient comments: no complaints and tolerating diet [place] baby status: doing well Date Patient Seen: 01/06/19 Time Patient Seen: 10:15 Interval history: Patient reports feeling well, sensation and movement returning to legs after epidural bolus. Denies chest pain, headaches, visual changes, or any other complaints obstetrical or otherwise. Exam Vital Signs (past 8 hours): 113/69, pulse 99, Narrative Exam Narrative: Patient well-appearing, resting Resp Effort & Inspection: normal respiratory effort Auscultation: clear to auscultation bilaterally Cardio Rate: regular rate Rhythm: regular rhythm GI Palpation: soft and No tender Bimanual Exam- Vagina & Uterus: uterine consistency normal Other: Fundus firm, below U. bleeding mild to moderate. Extrem General: normal to inspection Objective Labs Result Diagrams: 01/05/19 09:45 Labs: Laboratory Results - last 24 hr 01/05/19 09:45 Antibody Screen Negative Assessment & Plan Plan day: 0 plan OB: routine care Comments: Patient recovering well, slow to recover from epidural in the setting of requiring multiple boluses overnight prior to delivery. Otherwise meeting goals appropriately. -ambulation encouraged, patient is status post straight cath x1 and for trial of void this a.m.. -regular diet, pain medication as needed -medication VTE prophylaxis if patient does not began ambulating this a.m. -routine care Time Spent With Patient Time: Total time spent is greater than 50% in coordination of care (as ellis witt) at patient's floor/unit and/or counseling patient: Time with patient: less than 15 minutes
[2019-01-07] MEDS: IBUPROFEN 600 MG TABLET PO (06:00)
[2019-01-07] MEDS: LANOLIN OINT 7 GM 1 APPLIC TOP (09:10)
--- NOTE | 2019-01-07 10:48 | PM.DS.1 ---
History of Present Illness History of Present Illness Date Patient Seen: 01/07/19 Time Patient Seen: 11:11 Chief complaint: maternity Narrative: Patient is a 23-year-old day 1 status post uncomplicated vaginal delivery. Patient presented with premature rupture of membranes, and was successfully induced with Pitocin without complication. Her recovery was similarly uncomplicated. Today, patient reports feeling well, sensation and movement returning to legs after epidural bolus. Denies chest pain, headaches, visual changes, or any other complaints obstetrical or otherwise. 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 Her delivery and course were uncomplicated. Status at Discharge Cognitive/behavioral status at discharge: oriented Functional status at discharge: independent ambulation Overall status at discharge: patient is progressing back to baseline Time Spent with Patient Time spent: Less than 30 minutes Exam Vital Signs (past 8 hours): 106/71, 73. See today's progress note for details. Objective Labs Result Diagrams: 01/05/19 09:45 Discharge Plan Discharge Plan Patient Disposition: Home Discharge Med Rec/Prescriptions Prescriptions: Continued prenat.vits,rickey,vnj-lxhl-mormr tablet 1 tab PO DAILY RF: 0 (DME) breast pump [Pump In Style Advanced] device See Rx Instructions [id number] .MEDSUPPLY Qty: 1 RF: 0 Follow up/Referrals: Taty Serna MD [Primary Care Provider] - 6 Weeks (Follow up with Dr. Serna on at 11:00am (10:40 check in)) Provider Discharge Instructions Diet: Regular Activity: Nothing in the vagina for 6 weeks. Avoid heavy lifting for 6 weeks. If you develop increasing bleeding, fevers, chills, nausea, vomiting, or any other symptoms, call or come to the ED. Skin/Wound/Dressing Care Report to your healthcare provider any signs of infection, such as:: chills, fever, night sweats, increased pain and unusual drainage Visit Report/Discharge Packet Stand Alone Forms: Discharge: Care Discharge Data Primary Care Provider: Taty Serna
--- NOTE | 2019-01-07 10:48 | PM.OBPN.1 ---
Subjective - OB Subjective Patient comments: no complaints and pain well controlled [place] baby status: doing well [place] feeding status: exclusively breast feeding Narrative: Patient is a 23-year-old day 1 status post an uncomplicated early a.m. vaginal delivery on January 06. Recovery has been uneventful. Date Patient Seen: 01/07/19 Time Patient Seen: 11:06 Interval history: Patient reports feeling well today, ambulation improved after prolonged recovery from epidural. Voiding, normal bowel habits, moderate vaginal bleeding, tolerating p.o. intake, no other complaints today. Exam Vital Signs (past 8 hours): 106/71, 73, 98.1 Narrative Exam Narrative: General: Patient sitting on a bench, breast-feeding, appearing well. CTAB RRR Abdomen: Soft, nontender, fundus firm below U. Extremities: Nontender and symmetrical, no signs of DVT. 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 precautions were discussed, and the patient will follow up in clinic in 4-6 weeks. Current Visit: Yes Plan day: 1 plan OB: routine care Time Spent With Patient Time: Total time spent is greater than 50% in coordination of care (as documented) at patient's floor/unit and/or counseling patient: Time with patient: 15-24 minutes
== END 2019-01-07 12:35 | disposition home or self-care (01) | DRG 560 ==
PROVIDERS: Admitting Provider Obstetrics & Gynecology; PCP Specialist; Visit Provider Obstetrics & Gynecology
DX: O42.02 Full-term premature rupture of membranes, onset of labor within 24 hours of rupture (principal); Z3A.38 38 weeks gestation of pregnancy; Z37.0 Single live birth; O71.82 Other specified trauma to perineum and vulva; O70.0 First degree perineal laceration during delivery; F15.11 Other stimulant abuse, in remission; Z87.891 Personal history of nicotine dependence; F32.9 Major depressive disorder, single episode, unspecified; F41.9 Anxiety disorder, unspecified
CPT/HCPCS: 01967; 59050; 59409; 84112; 85025; 86850; 86900; 86901; G0379; J2310; J2405; J2540; J2590

== ENCOUNTER 2022-10-01 16:45 | Emergency (ER) | payer OTHER, MEDICAID, SELFPAY ==
[2022-10-01 16:48] VITALS: BP 134/80; PULSE 120; RESP 18; TEMP 36.6; O2SAT 97; BMI 51.5
[2022-10-01 17:00] VITALS: PULSE 118; RESP 18; O2SAT 99
[2022-10-01 17:18] LABS: Strep Grp A by PCR Rapid Negative (Negative)
[2022-10-01] MEDS: SODIUM CHLORIDE 0.9% 1,000 ML 1000 ML IV (17:20)
[2022-10-01 17:24] LABS: Add Manual Diff / Slide Review NO; Basophils Absolute Auto 100 /uL (0-100); Basophils Percent Auto 0.8 % (0-2); Eosinophils Absolute Auto 0 /uL (0-450); Eosinophils Percent Auto 0.1 % (2-4); Hematocrit 36.5 % (36-46); Hemoglobin 12.3 g/dL (12.0-16.0); Lymphocytes Absolute Auto 1000 /uL (1100-4500); Lymphocytes Percent Auto 9.2 % (25-40); Mean Corpuscular HGB Conc 33.8 % (30-36); Mean Corpuscular Hemoglobin 27.7 PG (26-34); Mean Corpuscular Volume 82.1 fL (80-100); Monocytes Absolute Auto 800 /uL (0-900); Monocytes Percent Auto 6.9 % (3-14); Neutrophils Absolute Auto 9300 /uL (1500-7000); Platelet Count 219 X10^3/uL (150-400); Red Blood Cell Count 4.45 X10^6/uL (4.0-5.2); Red Cell Distribution Width 14.3 % (11.6-14.8); White Blood Cell Count 11.1 X10^3/uL (4.5-11.0)
[2022-10-01 17:31] LABS: Alanine Aminotransferase 43 IU/L (<35); Albumin 4.1 g/dL (3.5-5.0); Albumin Globulin Ratio 1.1 (1.0-2.8); Alkaline Phosphatase 61 U/L (38-126); Aspartate Aminotransferase 34 IU/L (14-36); BUN Creatinine Ratio 14.9 (6-22); Bilirubin Total 1.2 mg/dL (0.2-1.3); Blood Urea Nitrogen 10 mg/dL (7-17); Calcium 8.7 mg/dL (8.4-10.2); Carbon Dioxide 24 mmol/L (22-32); Chloride 104 mmol/L (98-107); Estimated Glomerular Filt Rate > 60 mL/min (>60); Globulin 3.9 g/dL (1.7-4.1); Glucose 103 mg/dL (70-100); HEMOLYSIS < 15 (0-50); Potassium 3.6 mmol/L (3.4-5.1); Sodium 136 mmol/L (137-145)
[2022-10-01 18:00] VITALS: BP 120/58; PULSE 98; RESP 18; O2SAT 97
--- NOTE | 2022-10-01 18:22 | ED.GENADULT ---
HPI - General Adult General Chief complaint: Upper Respiratory Symptoms Stated complaint: strep throat T-1 fever, sore throat, white bumbs Time Seen by Provider: 10/01/22 18:06 Source: patient Mode of arrival: Ambulatory History of Present Illness HPI narrative: 27-year-old female daily smoker presents with sore throat and fever as high as 102. She is very little other symptoms other than feeling generally unwell and because she is not had much to eat or drink she is been a bit dizzy and lightheaded. She denies nausea or vomiting. She denies any runny nose or cough. She states it feels quite similar to when she had a strep infection a year ago. Related Data Home Medications Medication Instructions Recorded Confirmed etonogestrel 68 mg subdermal subdermal 11/08/21 11/08/21 implant (Nexplanon) Previous Rx's Medication Instructions Recorded amoxicillin 875 mg-potassium 1 tab PO Q12H #20 tabs 10/01/22 clavulanate 125 mg tablet ondansetron 4 mg disintegrating 4 mg PO TID-QID PRN nausea and 10/01/22 tablet vomiting #10 tabs Allergies Allergy/AdvReac Type Severity Reaction Status Date / Time No Known Drug Allergies Allergy Verified 11/08/21 08:37 Review of Systems Review of Systems Narrative: GENERAL: See HPI HEENT: See HPI RESPIRATORY: Denies dyspnea, cough, wheezing, hemoptysis, sputum. CARDIOVASCULAR: Denies chest pain, palpitations, orthopnea, edema, GASTROINTESTINAL: Denies nausea, vomiting, abdominal pain, diarrhea, constipation, melena. : Denies dysuria, frequency, incontinence, hematuria, urinary retention. MUSCULOSKELETAL: denies weakness, joint pain, or bony pain SKIN: Denies rash, skin lesions, or other NEUROLOGIC: Denies weakness, headache, numbness, change in speech, confusion, seizures, incoordination. PSYCHIATRIC: No concerning psychosocial issues. 12 point review of systems is negative except for those stated above Patient History Medical History Depression with anxiety Eczema Encounter for counseling regarding contraception Methamphetamine abuse in remission Surgical History H/O dilation and curettage Social History (Reviewed 10/01/22 @ 19:48 by BRENDA Cheng Smoking Status: Current every day smoker Tobacco: How many years used: 7 Smokeless tobacco user: other (nicotine vape ) second hand exposure: No alcohol intake: never substance use type: former substance user (Quit 03/20/2020), marijuana, crack/cocaine, painkillers (fentanyl ) and methamphetamine Smoking Status: Current every day smoker tobacco type: vaping Substance Use Type: does not use Exam Narrative Exam Narrative: GENERAL: [27] year old patient appears stated age. Well-developed patient, in mild distress. HEAD: Atraumatic. Normocephalic. EYES: Pupils equal round and reactive. Extraocular motions intact. No scleral icterus. No injection or drainage. ENT: Nose without bleeding, purulent drainage. Swollen, erythematous tonsils with white exudate, minimal soft palate petechiae, no evidence of mass or abscess, no pointing uvula, controlling secretions and managing airway without difficulty. NECK: Trachea midline. Tender anterior lymphadenopathy, no obvious posterior nodes CARDIOVASCULAR: Regular rate and rhythm without murmurs, gallops, or rubs. RESPIRATORY: Clear to auscultation. Breath sounds equal bilaterally. No wheezes, rales, or rhonchi. GASTROINTESTINAL: Abdomen soft, non-tender, nondistended. EXTREMITIES: No edema or joint tenderness. BACK: Nontender without deformity or crepitance. No flank tenderness. NEURO: AOx3. SKIN: No rash or erythema of visible areas Initial Vital Signs Initial Vital Signs: Vital Signs Temperature 98 F 10/01/22 16:48 Pulse Rate 120 H 10/01/22 16:48 Respiratory Rate 18 10/01/22 16:48 Blood Pressure 134/80 10/01/22 16:48 Pulse Oximetry 97 10/01/22 16:48 Oxygen Delivery Method Room Air 10/01/22 16:48 Course Course Course Narrative: Patient has significant improvement after above-stated therapies Orders Ordered: ED Orders 10/01/22 16:58 Strep Grp A by PCR Rapid Stat Throat Culture Stat 10/01/22 17:13 Complete Blood Count AUTO DIFF Stat Comprehensive Metabolic Panel Stat Discontinued Medications Amoxicillin/Clavulanate Potassium (Amoxicillin/Clav 875/125 Mg) 1 tab PO NOW ONE Stop: 10/01/22 19:45 Last Admin: 10/01/22 20:00 Dose: 1 tab Documented By: OW Sodium Chloride (Normal Saline 0.9%) 1,000 mls @ 1,000 mls/hr IV BOLUS ONE Stop: 10/01/22 18:01 Last Infusion: 10/01/22 19:21 Dose: 0 mls/hr Documented By: Admin: 10/01/22 17:20 Dose: 1,000 mls/hr Documented By: ZONIA Ondansetron HCl (Ondansetron 4 Mg/2 Ml Inj) 4 mg IV NOW PRN PRN Reason: Nausea And Vomiting Ondansetron HCl (Ondansetron 4 Mg Odt) 4 mg SL NOW PRN PRN Reason: Nausea And Vomiting Vital Signs Vital signs: Vital Signs - 8 hr 10/01/22 18:00 10/01/22 20:08 Temperature 98.5 F Pulse Rate 98 H 97 H Respiratory Rate 18 20 Blood Pressure 120/58 L 119/72 Pulse Oximetry 97 100 Oxygen Delivery Method Room Air Room Air Medical Decision Making Lab Data 10/01/22 17:13 10/01/22 17:13 Labs: Lab Results 10/01/22 10/01/22 10/01/22 Range/Units 16:58 17:13 17:13 WBC 11.1 H (4.5-11.0) X10^3/uL RBC 4.45 (4.0-5.2) X10^6/uL Hgb 12.3 (12.0-16.0) g/dL Hct 36.5 (36-46) % MCV 82.1 (80-100) fL MCH 27.7 (26-34) PG MCHC 33.8 (30-36) % RDW 14.3 (11.6-14.8) % Plt Count 219 (150-400) X10^3/uL Neut % (Auto) 83.0 H (50-75) % Lymph % (Auto) 9.2 L (25-40) % [place] % (Auto) 6.9 (3-14) % Eos % (Auto) 0.1 L (2-4) % Baso % (Auto) 0.8 (0-2) % Neut # (Auto) 9300 H (0959-7150) /uL Lymph # (Auto) 1000 L (0569-8109) /uL [place] # (Auto) 800 (0-900) /uL Eos # (Auto) 0 (0-450) /uL Baso # (Auto) 100 (0-100) /uL Sodium 136 L (137-145) mmol/L Potassium 3.6 (3.4-5.1) mmol/L Chloride 104 (98-107) mmol/L Carbon Dioxide 24 (22-32) mmol/L BUN 10 (7-17) mg/dL Creatinine 0.67 (0.52-1.04) mg/dL Estimated GFR > 60 (>60) mL/min BUN/Creatinine Ratio 14.9 (6-22) Glucose 103 H (70-100) mg/dL Calcium 8.7 (8.4-10.2) mg/dL Total Bilirubin 1.2 (0.2-1.3) mg/dL AST 34 (14-36) IU/L ALT 43 H (<35) IU/L Alkaline Phosphatase 61 (38-126) U/L Total Protein 8.0 (6.3-8.2) g/dL Albumin 4.1 (3.5-5.0) g/dL Globulin 3.9 (1.7-4.1) g/dL Albumin/Globulin Ratio 1.1 (1.0-2.8) Group A Strep (PCR) Negative (Negative) MDM Narrative Medical decision making narrative: [27] year old patient presents with sore throat and fever Multiple etiologies for patient's symptoms considered including, but not limited to: [Viral versus strep versus mono versus other] Prior Charts reviewed in our EMR Primary Historian: patient Labs reviewed and interpreted by myself: Rapid strep negative Patient's history and physical exam are reassuring. She has sore throat and fever. Exam demonstrates swollen tonsils with erythema and exudate as well as anterior nodes. No sign Patient's symptoms improved over duration of stay with above-stated therapies. Of abscess given history and physical we did discuss that this is most likely a bacterial infection and elected to treat today rather than wait for cultures in a few days. We did discuss the risks and benefits of this and sure the opinion that treating now is most appropriate. Findings and discharge diagnosis discussed with patient/family followed by verbalization of understanding Return precautions discussed with patient/family whom verbalize understanding of diagnosis and plan Discharge Plan Departure Patient Disposition: Home Clinical Impression: Acute tonsillitis Instructions: DI for Strep Throat Activity Restrictions/Additional Instructions: *You have been diagnosed with [tonsillitis. As we discussed your history and physical exam are reassuring and the rapid strep test was negative. Given your symptoms and exam seems very likely that the culture will come back with a positive finding in a few days and as the result we will treat with antibiotics starting tonight.] *What to do: *Please continue to take your regular medications as directed. [x ] New medication prescriptions sent to your pharmacy: [[facility] ] [ ] New medication written as a paper prescription [ ] No new medications given *Please follow up with your primary care provider in 2-3 days, call for an appointment. Let them know you were seen in the Emergency Department and that we ask that you be seen in follow up. We will electronically transmit a record of today's note if your PCP is in our system *Return to Emergency Department if you should have any new, worsening or concerning symptoms, such as face or throat swelling, persistent vomiting, inability to swallow, trouble breathing or other concerning symptoms Prescriptions: New ondansetron 4 mg tablet,disintegrating 4 mg PO TID-QID PRN (Reason: nausea and vomiting) Qty: 10 0RF amoxicillin-pot clavulanate 875-125 mg tablet 1 tab PO Q12H Qty: 20 0RF No Action Nexplanon 68 mg implant subdermal Referrals: Bill Chi MD [Primary Care Provider] - Stand Alone Forms: Patient Portal/API
[2022-10-01] MEDS: AMOXICILLIN/CLAV 875/125 MG 1 TAB PO (20:00)
[2022-10-01 20:08] VITALS: BP 119/72; PULSE 97; RESP 20; TEMP 36.9; O2SAT 100
== END 2022-10-01 20:10 | disposition home or self-care (01) ==
PROVIDERS: Emergency Medicine; Emergency Provider Emergency Medicine; PCP Pediatrics
DX: J03.90 Acute tonsillitis, unspecified (principal); R50.9 Fever, unspecified
CPT/HCPCS: 36415; 80053; 85025; 87070; 87077; 87147; 87651; 96360; 96361; 99284

== ENCOUNTER 2022-12-16 11:04 | Emergency (ER) | payer OTHER, MEDICAID, SELFPAY ==
[2022-12-16] VITALS (14 sets, daily range): BP systolic 97–126; BP diastolic 50–70; PULSE 55–75; RESP 14–19; TEMP 37; O2SAT 98–100; BMI 51.5
--- NOTE | 2022-12-16 11:37 | DI.US.S_ITS ---
PROCEDURE: US ABDOMEN LIMITED INDICATIONS: RIGHT UPPER QUADRANT PAIN TECHNIQUE: Real-time scanning was performed of the abdominal and retroperitoneal organs, with image documentation. COMPARISON: None. FINDINGS: Gallbladder: Cholelithiasis. No wall thickening. Negative sonographic Nelson sign. Biliary ducts: Intrahepatic bile ducts are non-dilated. Extrahepatic bile duct caliber measures 5 mm. Normal is 6-7 mm or less in diameter, or 10 mm or less post-cholecystectomy. IMPRESSION: Cholelithiasis without evidence of acute cholecystitis or choledocholithiasis. Dictated by: Yamil Pritchett M.D. on 12/16/2022 at 12:20 Approved by: Yamil Pritchett M.D. on 12/16/2022 at 12:26
[2022-12-16 11:44] LABS: Add Manual Diff / Slide Review NO; Basophils Absolute Auto 0 /uL (0-100); Basophils Percent Auto 0.5 % (0-2); Eosinophils Absolute Auto 100 /uL (0-450); Eosinophils Percent Auto 1.7 % (2-4); Hematocrit 37.3 % (36-46); Hemoglobin 12.4 g/dL (12.0-16.0); Lymphocytes Absolute Auto 1300 /uL (1100-4500); Lymphocytes Percent Auto 18.4 % (25-40); Mean Corpuscular HGB Conc 33.2 % (30-36); Mean Corpuscular Hemoglobin 28.3 PG (26-34); Mean Corpuscular Volume 85.3 fL (80-100); Monocytes Absolute Auto 300 /uL (0-900); Monocytes Percent Auto 4.9 % (3-14); Neutrophils Absolute Auto 5300 /uL (1500-7000); Neutrophils Percent Auto 74.5 % (50-75); Platelet Count 277 X10^3/uL (150-400); Red Blood Cell Count 4.37 X10^6/uL (4.0-5.2); White Blood Cell Count 7.2 X10^3/uL (4.5-11.0)
[2022-12-16 11:53] LABS: Alanine Aminotransferase 298 IU/L (<35); Albumin 3.9 g/dL (3.5-5.0); Alkaline Phosphatase 106 U/L (38-126); Aspartate Aminotransferase 157 IU/L (14-36); BUN Creatinine Ratio 21.2 (6-22); Bilirubin Total 4.6 mg/dL (0.2-1.3); Blood Urea Nitrogen 14 mg/dL (7-17); Calcium 9.3 mg/dL (8.4-10.2); Carbon Dioxide 25 mmol/L (22-32); Chloride 107 mmol/L (98-107); Estimated Glomerular Filt Rate > 60 mL/min (>60); Globulin 4.1 g/dL (1.7-4.1); Glucose 94 mg/dL (70-100); HEMOLYSIS < 15 (0-50); Lipase 70 U/L (23-300); Potassium 4.1 mmol/L (3.4-5.1); Sodium 140 mmol/L (137-145)
[2022-12-16 12:25] LABS: Ictotest Urine Positive (Negative)
[2022-12-16 12:31] LABS: Bacteria Urine Few (2-10); Culture Indicated Urine Specimen Cultured; RBC Urine 1-5/HPF (0-5/HPF); Squamous Epithelial Cell Urine 1-5 /HPF (0-5/HPF); WBC Urine 1-5/HPF (0-5/HPF)
--- NOTE | 2022-12-16 14:11 | ED.ABDPAIN ---
HPI - Abdominal Pain General Chief Complaint: Abdominal Pain Stated Complaint: upper abd pain Time Seen by Provider: 12/16/22 14:04 Source: patient Mode of arrival: Ambulatory History of Present Illness HPI narrative: 27-year-old female with no reported past medical history presents for 4 days of right upper quadrant abdominal pain. Pain began after eating fast food. Associated nausea. Pain worsened again this afternoon after eating another fast food meal and so she decided to present for evaluation. No medications taken at home prior to arrival. No previous abdominal surgeries. Related Data Home Medications Medication Instructions Recorded Confirmed etonogestrel 68 mg subdermal subdermal 11/08/21 11/08/21 implant (Nexplanon) Previous Rx's Medication Instructions Recorded amoxicillin 875 mg-potassium 1 tab PO Q12H #20 tabs 10/01/22 clavulanate 125 mg tablet ondansetron 4 mg disintegrating 4 mg PO TID-QID PRN nausea and 10/01/22 tablet vomiting #10 tabs Allergies Allergy/AdvReac Type Severity Reaction Status Date / Time No Known Drug Allergies Allergy Verified 12/16/22 11:23 Review of Systems Review of Systems Narrative: CONSTITUTIONAL- Denies: fever, chills, fatigue HEENT- Denies: sore throat, nosebleed, vision changes RESPIRATORY- Denies: shortness of breath, cough, wheezing CARDIAC- Denies: chest pain, edema, orthopnea GI-reports: Abdominal pain, nausea Denies: vomiting, constipation, diarrhea - Denies: frequency, dysuria, hematuria, flank pain MSK- Denies: extremity pain, extremity swelling, joint pain, joint swelling SKIN- Denies: rash, itching, burn, swelling NEUROLOGICAL- Denies: headache, numbness, weakness, dizziness PSYCHIATRIC- Denies: anxiety, depression, suicidal ideation, homicidal ideation Patient History Medical History Depression with anxiety Eczema Encounter for counseling regarding contraception Methamphetamine abuse in remission Surgical History H/O dilation and curettage Social History Smoking Status: Current every day smoker Tobacco: How many years used: 7 Smokeless tobacco user: other (nicotine vape ) second hand exposure: No alcohol intake: never substance use type: former substance user (Quit 03/20/2020), marijuana, crack/cocaine, painkillers (fentanyl ) and methamphetamine Smoking Status: Current every day smoker tobacco type: vaping Substance Use Type: does not use Exam Initial Vital Signs Initial Vital Signs: Vital Signs Temperature 98.6 F 12/16/22 11:19 Pulse Rate 67 12/16/22 11:19 Respiratory Rate 19 12/16/22 11:19 Blood Pressure 126/68 12/16/22 11:19 Pulse Oximetry 98 12/16/22 11:19 Oxygen Delivery Method Room Air 12/16/22 11:19 Const: Awake, alert, no acute distress, nontoxic appearing Eyes: PERRL, EOMI, mild scleral icterus ENT: Atraumatic, dentition normal, mucous membranes moist Cardiac: regular rate, regular rhythm RESP: unlabored, clear bilaterally, no wheezing GI: Soft, obese, positive Nelson's sign MSK: Atraumatic, full range of motion, pulses equal Skin: Warm, Dry, intact, no rashes Neuro: AO x3, CN II-XII grossly intact, moves all extremities Psych: affect normal, mood normal, not suicidal, not homicidal Course Orders Ordered: ED Orders 12/16/22 11:30 Complete Blood Count AUTO DIFF Stat Comprehensive Metabolic Panel Stat Lipase Stat 12/16/22 11:37 US abdomen limited Stat Urine Culture Stat Urine Microscopic Stat 12/16/22 12:22 Ictotest Urine Stat 12/16/22 14:19 MRCP [MR abdomen wo/w con] Stat Ondansetron HCl (Ondansetron 4 Mg Odt) 4 mg PO NOW PRN PRN Reason: Nausea And Vomiting Ondansetron HCl (Ondansetron 4 Mg/2 Ml Inj) 4 mg IV NOW PRN PRN Reason: Nausea And Vomiting Discontinued Medications Sodium Chloride (Normal Saline 0.9%) 1,000 mls @ 1,000 mls/hr IV BOLUS ONE Stop: 12/16/22 15:09 Last Infusion: 12/16/22 15:23 Dose: Infused Documented By: Admin: 12/16/22 14:23 Dose: 1,000 mls/hr Documented By: VICENTE Morphine Sulfate (Morphine 4 Mg/Ml Inj) 4 mg IV NOW ONE Stop: 12/16/22 14:11 Last Admin: 12/16/22 14:25 Dose: 4 mg Documented By: VICENTE Ondansetron HCl (Ondansetron 4 Mg/2 Ml Inj) 4 mg IV NOW ONE Stop: 12/16/22 14:11 Last Admin: 12/16/22 14:25 Dose: 4 mg Documented By: VICENTE Reevaluation(s) Reevaluation #1: Right upper quadrant pain with mild scleral icterus. Laboratory work and imaging ordered. Consultations Consultation #1: Dr. Hernandez - recommended MRCP, patient will likely need transfer to GI-capable facility Vital Signs Vital signs: Vital Signs - 8 hr 12/16/22 11:19 12/16/22 14:12 12/16/22 14:13 Temperature 98.6 F Pulse Rate 67 66 Respiratory Rate 19 Blood Pressure 126/68 119/70 Pulse Oximetry 98 100 Oxygen Delivery Method Room Air 12/16/22 14:13 12/16/22 14:30 12/16/22 14:30 Temperature Pulse Rate 65 61 Respiratory Rate 18 18 Blood Pressure 117/56 L Pulse Oximetry 99 99 Oxygen Delivery Method 12/16/22 15:00 12/16/22 15:00 Temperature Pulse Rate 61 Respiratory Rate 18 Blood Pressure 97/54 L Pulse Oximetry 100 Oxygen Delivery Method MDM - Abdominal Pain Lab Data 12/16/22 11:30 12/16/22 11:30 Labs: Lab Results 12/16/22 12/16/22 12/16/22 Range/Units 11:30 11:37 12:22 WBC 7.2 (4.5-11.0) X10^3/uL RBC 4.37 (4.0-5.2) X10^6/uL Hgb 12.4 (12.0-16.0) g/dL Hct 37.3 (36-46) % MCV 85.3 (80-100) fL MCH 28.3 (26-34) PG MCHC 33.2 (30-36) % RDW 15.0 H (11.6-14.8) % Plt Count 277 (150-400) X10^3/uL Neut % (Auto) 74.5 (50-75) % Lymph % (Auto) 18.4 L (25-40) % [place] % (Auto) 4.9 (3-14) % Eos % (Auto) 1.7 L (2-4) % Baso % (Auto) 0.5 (0-2) % Neut # (Auto) 5300 (6487-1398) /uL Lymph # (Auto) 1300 (4059-6567) /uL [place] # (Auto) 300 (0-900) /uL Eos # (Auto) 100 (0-450) /uL Baso # (Auto) 0 (0-100) /uL Sodium 140 (137-145) mmol/L Potassium 4.1 (3.4-5.1) mmol/L Chloride 107 (98-107) mmol/L Carbon Dioxide 25 (22-32) mmol/L BUN 14 (7-17) mg/dL Creatinine 0.66 (0.52-1.04) mg/dL Estimated GFR > 60 (>60) mL/min BUN/Creatinine Ratio 21.2 (6-22) Glucose 94 (70-100) mg/dL Calcium 9.3 (8.4-10.2) mg/dL Total Bilirubin 4.6 H (0.2-1.3) mg/dL AST 157 H (14-36) IU/L ALT 298 H (<35) IU/L Alkaline Phosphatase 106 (38-126) U/L Total Protein 8.0 (6.3-8.2) g/dL Albumin 3.9 (3.5-5.0) g/dL Globulin 4.1 (1.7-4.1) g/dL Albumin/Globulin Ratio 1.0 (1.0-2.8) Lipase 70 (23-300) U/L Ur Bilirubin Confirm Positive H (Negative) Urine RBC 1-5/hpf (0-5/HPF) Urine WBC 1-5/hpf (0-5/HPF) Ur Squamous Epith Cells 1-5 /hpf (0-5/HPF) Urine Bacteria Few (2-10) H (None) Ur Culture Indicated? Specimen cultured Point of care testing: Point of Care Testing Test Results Negative Urine Dip Bedside Urine Glucose Negative Bedside Urine Bilirubin + 1 Bedside Urine Ketone - Negative Urine Specific [place] 1.025 Bedside Urine Occult Blood - Negative Bedside Urine pH 6.0 Bedside Urine Protein +/- 15 Bedside Urine Urobilinogen - Negative Bedside Urine Nitrite - Negative Bedside Urine Leukocytes +/- 15 Esterase MDM Narrative Medical decision making narrative: Laboratory work and imaging reviewed, patient has acute elevations in liver enzymes. No leukocytosis. Ultrasound of the right upper quadrant shows cholelithiasis without cholecystitis. General surgery contacted, who recommended MRCP, stated that patient would likely need to be transferred to a GI capable facility. MRI is unable to take patient until at least tomorrow due to current MRI wait times. We will attempt to transfer and meantime. Patient and her mother informed of lab and imaging results as well as potential need to transfer. They are in agreement at this time. Discharge Plan Departure Patient Disposition: [facility] Clinical Impression: Right upper quadrant abdominal pain, Elevated liver enzymes, Morbid obesity Prescriptions: No Action Nexplanon 68 mg implant subdermal ondansetron 4 mg tablet,disintegrating 4 mg PO TID-QID PRN (Reason: nausea and vomiting) Qty: 10 0RF amoxicillin-pot clavulanate 875-125 mg tablet 1 tab PO Q12H Qty: 20 0RF Referrals: Bill Chi MD [Primary Care Provider] -
[2022-12-16] MEDS: SODIUM CHLORIDE 0.9% 1,000 ML 1000 ML IV (14:23)
[2022-12-16] MEDS: ONDANSETRON 4 MG/2 ML INJ IV (14:25)
[2022-12-16] MEDS: MORPHINE 4 MG/ML INJ IV ×2 (14:25→20:10)
--- NOTE | 2022-12-16 16:23 | DI.CT.S_ITS ---
PROCEDURE: CT ABDOMEN PELVIS W CON INDICATIONS: RUQ PAIN, ELEVATED LIVER ENZYMES TECHNIQUE: After the administration of oral and IV contrast, axial sections were acquired from the lung bases to the pubic symphysis. Coronal and sagittal reformats were performed. For radiation dose reduction, the following was used: automated exposure control, adjustment of mA and/or kV according to patient size. COMPARISON: [facility], , ABDOMEN LIMITED, 12/16/2022, 11:43. FINDINGS: Image quality: Excellent. Lung bases: A small hiatal hernia is incidentally noted. Heart: No significant findings. ABDOMEN: Liver: Unremarkable. Gallbladder: Layering gallstones are again seen. No additional CT findings of cholecystitis are seen. Biliary ducts: Unremarkable. Pancreas: Unremarkable. Spleen: Unremarkable. Adrenal Glands: Unremarkable. Kidneys and Ureters: Unremarkable. Stomach and Bowel: Stomach, small bowel loops, and colon are unremarkable. A normal appendix is noted. Peritoneum: No abnormal intraperitoneal fluid. No free air. Ventral Wall: No hernia. Abdominal Nodes: No retroperitoneal or mesenteric adenopathy by size criteria. Vessels: Aorta and inferior vena cava are normal in size. PELVIS: Pelvic Organs: The uterus appears normal for age. No adnexal masses are seen. Bladder: Unremarkable. Pelvic Nodes: No enlarged lymph nodes. Miscellaneous: No inguinal hernias are seen. Bones: There is focal L5-S1 degenerative change. IMPRESSION: Gallstones are seen, without additional CT findings of cholecystitis. Normal appearing liver by CT. No appendix (either normal or abnormal) is identified on this study. Additional findings: Small hiatal hernia Focal premature L5-S1 degenerative change Dictated by: Jose Moreira M.D. on 12/16/2022 at 15:41 Approved by: Jose Moreira M.D. on 12/16/2022 at 15:43
== END 2022-12-16 20:20 | disposition short-term general hospital (02) ==
PROVIDERS: Emergency Provider Emergency Medicine; PCP Pediatrics
DX: R74.8 Abnormal levels of other serum enzymes (principal); R10.11 Right upper quadrant pain; E66.01 Morbid (severe) obesity due to excess calories
CPT/HCPCS: 36415; 74177; 76705; 80053; 81003; 81015; 81025; 83690; 85025; 87086; 96361; 96374; 96375; 96376; 99284; J2270; J2405; Q9967

== ENCOUNTER 2023-07-27 19:55 | Emergency (ER) | payer OTHER, MEDICAID, SELFPAY ==
[2023-07-27 19:57] VITALS: BP 117/68; PULSE 102; RESP 22; TEMP 36.9; O2SAT 100; BMI 48.0
--- NOTE | 2023-07-27 20:04 | DI.RAD.S_ITS ---
PROCEDURE: XR CHEST 1V INDICATIONS: persistent cough TECHNIQUE: One view of the chest was acquired. COMPARISON: None. FINDINGS: Surgical changes and devices: None. Lungs and pleura: No consolidation. No pleural effusions or pneumothorax. Mediastinum: Mediastinal contours appear normal. Heart size is normal. Bones and chest wall: No suspicious bony lesions. Overlying soft tissues appear unremarkable. IMPRESSION: No acute cardiopulmonary abnormality is seen. Dictated by: Jorge Carver M.D. on 07/27/2023 at 22:18 Approved by: Jorge Carver M.D. on 07/27/2023 at 22:19
[2023-07-27] MEDS: ACETAMINOPHEN 325 MG TABLET 975 MG PO (20:10)
[2023-07-27 20:59] LABS: Adenovirus Not Detected (Not Detect); B. parapertussis Not Detected (Not Detecte); Bordetella pertussis Not Detected (Not Detect); Chlamydophila pneumoniae Not Detected (Not Detect); Coronavirus 229E Not Detected (Not Detect); Coronavirus HKU1 Not Detected (Not Detect); Coronavirus NL 63 Not Detected (Not Detect); Coronavirus OC43 Not Detected (Not Detect); Human Metapneumovirus Detected (Not Detect); Human Rhinovirus/Enterovirus Not Detected (Not Detect); Influenza A Not Detected (Not Detect); Influenza B Not Detected (Not Detect); Mycoplasma pneumoniae Not Detected (Not Detect); Parainfluenza Virus 1 Not Detected (Not Detect); Parainfluenza Virus 2 Not Detected (Not Detect); Parainfluenza Virus 3 Detected (Not Detect); Parainfluenza Virus 4 Not Detected (Not Detect); Respiratory Syncytial Virus Not Detected (Not Detect); SARS- CoV-2 Not Detected (Not Detecte)
[2023-07-27 22:47] VITALS: BP 124/59; PULSE 78; RESP 18; TEMP 36.9; O2SAT 98
--- NOTE | 2023-07-28 00:33 | ED.GENADULT ---
HPI - General Adult General Chief complaint: Upper Respiratory Symptoms Stated complaint: raspy cough Time Seen by Provider: 07/28/23 00:32 Source: patient Mode of arrival: Ambulatory History of Present Illness HPI narrative: 28-year-old female complains of dry cough for the last 5 days, some chest discomfort with coughing, does not feel particularly short of breath. No fevers or chills. Not taking current antibiotics. No history of asthma or chronic lung problems. No household members with similar symptoms. Related Data Previous Rx's Medication Instructions Recorded benzonatate 200 mg capsule 200 mg PO BID-TID PRN cough 5 days 07/28/23 #15 caps Allergies Allergy/AdvReac Type Severity Reaction Status Date / Time No Known Drug Allergies Allergy Verified 02/22/23 13:09 Patient History Medical History Depression with anxiety Eczema Encounter for counseling regarding contraception Methamphetamine abuse in remission Surgical History H/O dilation and curettage Social History Smoking Status: Current every day smoker Tobacco: How many years used: 7 Smokeless tobacco user: other (nicotine vape ) second hand exposure: No alcohol intake: never substance use type: former substance user (Quit 03/20/2020), marijuana, crack/cocaine, painkillers (fentanyl ) and methamphetamine Smoking Status: Current every day smoker tobacco type: vaping Substance Use Type: does not use Exam Narrative Exam Narrative: GENERAL: 28 year old patient appears stated age. Well-developed patient, in mild distress. HEAD: Atraumatic. Normocephalic. EYES: Pupils equal round and reactive. Extraocular motions intact. No scleral icterus. No injection or drainage. ENT: Nose without bleeding, purulent drainage. Throat without erythema, tonsillar hypertrophy or exudate. Airway patent. NECK: Trachea midline. Non tender CARDIOVASCULAR: Regular rate and rhythm without murmurs, gallops, or rubs. RESPIRATORY: Clear to auscultation. Breath sounds equal bilaterally. No wheezes, rales, or rhonchi. Frequent coughing. No respiratory distress, no retractions intercostal or suprasternal GASTROINTESTINAL: Abdomen soft, non-tender, nondistended. EXTREMITIES: No edema or joint tenderness. BACK: Nontender without deformity or crepitance. No flank tenderness. NEURO: AOx3. SKIN: No rash or erythema of visible areas Initial Vital Signs Initial Vital Signs: Vital Signs Temperature 98.5 F 07/27/23 19:57 Pulse Rate 102 H 07/27/23 19:57 Respiratory Rate 22 07/27/23 19:57 Blood Pressure 117/68 07/27/23 19:57 Pulse Oximetry 100 07/27/23 19:57 Oxygen Delivery Method Room Air 07/27/23 19:57 Course Orders Ordered: Discontinued Medications Acetaminophen (Acetaminophen 325 Mg Tablet) 975 mg PO NOW ONE Stop: 07/27/23 20:07 Last Admin: 07/27/23 20:10 Dose: 975 mg Documented By: GABRIELLA Benzonatate (Benzonatate 100 Mg Capsule) 100 mg PO NOW ONE Stop: 07/28/23 01:05 Last Admin: 07/28/23 01:16 Dose: 100 mg Documented By: LEATHA Vital Signs Vital signs: Vital Signs - 8 hr 07/27/23 19:57 07/27/23 22:47 Temperature 98.5 F 98.5 F Pulse Rate 102 H 78 Respiratory Rate 22 18 Blood Pressure 117/68 124/59 L Pulse Oximetry 100 98 Oxygen Delivery Method Room Air Room Air Medical Decision Making Lab Data Labs: Lab Results 07/27/23 Range/Units 20:05 Chlamy pneumoniae PCR Not detected (Not Detect) Adenovirus (PCR) Not detected (Not Detect) B.parapertussis DNA PCR Not detected (Not Detecte) Coronavirus OC43 (PCR) Not detected (Not Detect) Coronavirus HKU1 (PCR) Not detected (Not Detect) Coronavirus 229E (PCR) Not detected (Not Detect) SARS-CoV-2 (PCR) Not detected (Not Detecte) Coronavirus NL63 (PCR) Not detected (Not Detect) Human Metapneumovir PCR Detected H (Not Detect) Influenza Type A (PCR) Not detected (Not Detect) Influenza Type B (PCR) Not detected (Not Detect) M. pneumoniae (PCR) Not detected (Not Detect) Parainfluenza 1 (PCR) Not detected (Not Detect) Parainfluenza 2 (PCR) Not detected (Not Detect) Parainfluenza 3 (PCR) Detected H (Not Detect) Parainfluenza 4 (PCR) Not detected (Not Detect) RSV (PCR) Not detected (Not Detect) Entero/Rhino (PCR) Not detected (Not Detect) Imaging Data Chest x-ray: Radiologist's Impression: [address] [address] XRay Report Signed Patient: Kailyn Naranjo MR#: [id number] : 1995 Acct:[id number] Age/Sex: 28 / F Date of Service: 07/27/23 Loc: ED Accession Number: [id number] Procedure: XR chest 1V Ordering Provider: Naresh Lawton MD PROCEDURE: XR CHEST 1V INDICATIONS: persistent cough TECHNIQUE: One view of the chest was acquired. COMPARISON: None. FINDINGS: Surgical changes and devices: None. Lungs and pleura: No consolidation. No pleural effusions or pneumothorax. Mediastinum: Mediastinal contours appear normal. Heart size is normal. Bones and chest wall: No suspicious bony lesions. Overlying soft tissues appear unremarkable. IMPRESSION: No acute cardiopulmonary abnormality is seen. Dictated by: Jorge Carver M.D. on 07/27/2023 at 22:18 Approved by: Jorge Carver M.D. on 07/27/2023 at 22:19 [facility] Narrative Medical decision making narrative: 28-year-old female with recent days coughing, increasing frequency and severity of her cough, still dry, denies shortness of breath. Fgtz-vgu-nnzqdie anti cough medications not helping. Frequent cough on exam, normal phonation, not particularly weeping in nature. Speaks in full sentences, no retractions, normal room air sat. Respiratory swab done in triage positive for human metapneumovirus, also positive for parainfluenza. Chest radiograph negative. Trial of antitussive Tessalon. Patient agreeable, stable, home with family. Return precautions discussed Discharge Plan Departure Patient Disposition: Home Clinical Impression: Acute upper respiratory infection, Infection due to human metapneumovirus (hMPV), Parainfluenza infection Activity Restrictions/Additional Instructions: 5-6 days of cough that is dry, persisting. Reassuring exam. Normal oxygenation, lungs clear, no respiratory distress. Swab positive for human metapneumovirus, and for parainfluenza virus. Chest x-ray without acute pneumonia changes per radiologist review. No response to [id number] dextromethorphan type cough medicine. Trial of Tessalon/benzonatate cough suppressant medication. Recheck with your regular provider if not better in the next 2-3 days. Return to the emergency department for any change worsening symptoms or any concerns prior Prescriptions: New benzonatate 200 mg capsule 200 mg PO BID-TID PRN (Reason: cough) 5 Days Qty: 15 0RF Referrals: Ruthy Little DO [Primary Care Provider] - Stand Alone Forms: Patient Portal/API
[2023-07-28] MEDS: BENZONATATE 100 MG CAPSULE PO (01:16)
== END 2023-07-28 01:23 | disposition home or self-care (01) ==
PROVIDERS: Emergency Provider Emergency Medicine; PCP Family Medicine
DX: J06.9 Acute upper respiratory infection, unspecified (principal); B97.81 Human metapneumovirus as the cause of diseases classified elsewhere; B34.8 Other viral infections of unspecified site; F17.290 Nicotine dependence, other tobacco product, uncomplicated
CPT/HCPCS: 71045; 87633; 99283

== ENCOUNTER → 2024-07-18 09:34 | Outpatient (CLI) | payer OTHER, SELFPAY ==
[2024-07-18 10:34] LABS: Add Manual Diff / Slide Review NO; Basophils Absolute Auto 0 /uL (0-100); Basophils Percent Auto 0.4 % (0-2); Eosinophils Absolute Auto 100 /uL (0-450); Eosinophils Percent Auto 1.5 % (2-4); Hemoglobin 13.3 g/dL (12.0-16.0); Lymphocytes Absolute Auto 1400 /uL (1100-4500); Lymphocytes Percent Auto 17.1 % (25-40); Mean Corpuscular HGB Conc 33.2 % (30-36); Mean Corpuscular Hemoglobin 28.5 PG (26-34); Mean Corpuscular Volume 85.7 fL (80-100); Monocytes Absolute Auto 400 /uL (0-900); Monocytes Percent Auto 5.5 % (3-14); Neutrophils Absolute Auto 6000 /uL (1500-7000); Neutrophils Percent Auto 75.5 % (50-75); Platelet Count 237 X10^3/uL (150-400); Red Blood Cell Count 4.67 X10^6/uL (4.0-5.2); White Blood Cell Count 7.9 X10^3/uL (4.5-11.0)
[2024-07-18 11:06] LABS: Alanine Aminotransferase 29 IU/L (<35); Albumin 4.2 g/dL (3.5-5.0); Albumin Globulin Ratio 1.3 (1.0-2.8); Alkaline Phosphatase 55 U/L (38-126); Aspartate Aminotransferase 31 IU/L (14-36); BUN Creatinine Ratio 13.5 (6-22); Bilirubin Total 1.1 mg/dL (0.2-1.3); Blood Urea Nitrogen 10 mg/dL (7-17); Calcium 9.2 mg/dL (8.4-10.2); Carbon Dioxide 27 mmol/L (22-32); Chloride 106 mmol/L (98-107); Cholesterol 145 mg/dL (140-199); Estimated Glomerular Filt Rate > 60 mL/min (>60); Globulin 3.3 g/dL (1.7-4.1); Glucose 90 mg/dL (70-99); HDL Cholesterol 46 mg/dL (40-60); HEMOLYSIS < 15 (0-50); LDL Cholesterol Calculated 84 mg/dL (<100); Potassium 4.6 mmol/L (3.4-5.1); Sodium 139 mmol/L (137-145); Total Protein 7.5 g/dL (6.3-8.2); Triglycerides 73 mg/dL (35-150)
[2024-07-18 11:12] LABS: Hemoglobin A1C% w Est Avg Glu 4.7 % (4.0-6.0)
[2024-07-18 11:37] LABS: TSH w/ Reflex to FT4 2.03 uIU/mL (0.47-4.68)
== END ==
LOC: LAB 09:35
PROVIDERS: PCP Family Medicine; Referring Provider Family Medicine; Visit Provider Family Medicine
DX: Z00.00 Encounter for general adult medical examination without abnormal findings (principal); Z13.1 Encounter for screening for diabetes mellitus; E78.5 Hyperlipidemia, unspecified; E66.01 Morbid (severe) obesity due to excess calories; R63.1 Polydipsia; Z68.43 Body mass index [BMI] 50.0-59.9, adult
CPT/HCPCS: 36415; 80053; 80061; 83036; 84443; 85025

== ENCOUNTER → 2024-07-24 16:01 | Outpatient (CLI) | payer OTHER, SELFPAY ==
--- NOTE | 2024-07-24 16:05 | DI.RAD.S_ITS ---
PROCEDURE: XR LUMBAR SPINE 2-3V INDICATIONS: fall with midback pain TECHNIQUE: 3 views of the lumbar spine were acquired. COMPARISON: None. FINDINGS: Lumbar spine curvature and alignment: Normal. Bones: There are no fractures or other osseous abnormalities. Disc spaces: Moderate L5-S1 degenerative disc and facet disease noted Intervertebral foramen: Grossly normal in width. Soft tissues: No soft tissue swelling, calcification or mass. IMPRESSION: Moderate L5-S1 degenerative disc and facet disease Dictated by: Nasir Lopes M.D. on 07/25/2024 at 11:27 Approved by: Nasir Lopes M.D. on 07/25/2024 at 11:28
--- NOTE | 2024-07-24 16:05 | DI.RAD.S_ITS ---
PROCEDURE: XR THORACIC SPINE 3V INDICATIONS: fall with midback pain TECHNIQUE: 3 views of the thoracic spine were acquired. COMPARISON: None. FINDINGS: Thoracic spine curvature and alignment: Normal. Bones: There are no osseous abnormalities. Disc spaces: Mild degenerative disc disease is seen in all thoracic levels. Intervertebral foramen: Grossly normal in width. Soft tissues: No soft tissue swelling, calcification or mass. IMPRESSION: Mild degenerative disc disease throughout the thoracic spine Dictated by: Nasir Lopes M.D. on 07/25/2024 at 11:28 Approved by: Nasir Lopes M.D. on 07/25/2024 at 11:29
== END ==
LOC: DI 16:03
PROVIDERS: PCP Family Medicine; Referring Provider Chiropractor; Visit Provider Chiropractor
DX: M51.34 Other intervertebral disc degeneration, thoracic region (principal)
CPT/HCPCS: 72072; 72100

== ENCOUNTER → 2024-08-10 09:23 | Outpatient (CLI) | payer OTHER, SELFPAY | PROVIDERS: PCP Family Medicine; Visit Provider Nurse Practitioner Family | DX: J02.9 Acute pharyngitis, unspecified (principal) | CPT/HCPCS: 87070 ==

== ENCOUNTER → 2024-08-23 10:40 | Outpatient (CLI) | payer OTHER, SELFPAY ==
--- NOTE | 2024-08-23 14:39 | DIET.OUTPTC ---
Dietary Outpatient Consult Consult Date: 08/23/24 Assessment:? 29 y F referred to dietitian for Z68.43 Body mass index [BMI] 50.0-59.9, E66.01 Morbid (severe) obesity due to excess calories Pt unable to get insurance to cover GLP1, looking for help with lifestyle changes for weight management D/t diarrhea has inconsistent PO intakes, resulting in some days with little intake and other days insatiable hunger GI symptoms: Diarrhea (T6-7 on bristol stool chart) daily after every meal within 30 minutes, greasy/bile stool. Denies N/V/C Acid reflux if eats late at night Diet Recall: Either has breakfast or lunch: toast, cereal for breakfast and sandwich or leftovers for lunch Dinner: sandwich or homemade meal or takeout Fluids: water throughout day, sometimes soda at night Ht:?5 ft 4in? Wt: 295 lb?? BMI:?50.6? UBW: x Activity: going to go to gym 3x/wk Pertinent Labs: normal A1c% and lipid panel Nutrition Diagnosis:? Altered GI function r/t changes in GI structure/function aeb diarrhea within 30 minutes after eating after cholecystectomy Interventions:? Discussed and provided appropriate resources on the following: -Dietary changes of slowly/progressively increasing soluble fiber to goal of 5-10 g soluble fiber daily and overall 25 g total fiber daily and smaller freq meals -Myplate/Mediterranean style of eating with goal of consistent intakes throughout day to avoid insatiable hunger other days -Physical activity Goals: -Oatmeal in the morning and addition of 2-3 g soluble fiber at lunch or dinner -Tolerated 1-2 snacks midday (ex- cheese stick) that don't cause diarrhea in smaller portions -Gym 3x/wk, moderate intensity level EER:? 25-28 g fiber daily Monitoring/Evaluations:? F/u in 2 wks Electronically Signed by: Christi Torres Clinical Dietitian [address] [address]
== END ==
LOC: DIET 10:41
PROVIDERS: PCP Family Medicine; Referring Provider Family Medicine
DX: E66.01 Morbid (severe) obesity due to excess calories (principal); Z68.43 Body mass index [BMI] 50.0-59.9, adult; Z71.3 Dietary counseling and surveillance
CPT/HCPCS: 97802

== ENCOUNTER → 2024-09-20 10:47 | Outpatient (CLI) | payer OTHER, SELFPAY ==
--- NOTE | 2024-09-20 10:51 | DIET.OUTPTC ---
Dietary Outpatient Consult Consult Date:09/20/24 Assessment:? 29 y F referred to dietitian for Z68.43 Body mass index [BMI] 50.0-59.9, E66.01Morbid (severe) obesity due to excess calories Pt now having formed stools after breakfast and dinner, but still having BM after every meal - preventing pt from eating lunch Lost 20 lb since start of bupropion HCl XL, metformin, and topiramate Busy lately, unable to go to gym like planned. Diet Recall: B-Religion oat packet w/ water (1g soluble fiber) D-crockpot meal, lean protein 6 oz, veg, carb Activity: walking from parking lot, stairs at work, report 6-7k steps daily Nutrition Diagnosis:? (Improving) Altered GI function r/t changes in GI structure/function aeb diarrhea within 30 minutes after eating after cholecystectomy Interventions:? Discussed and provided appropriate resources on the following: -Additional fiber/protein at breakfast time -Adequate protein intake Goals: -Gym as able -When going out for fast food, pair with fruit/veg from place or from home -Adding joseline seeds/flax seeds/nuts/fruit and [place] yogurt option with breakfast EER:? 25-28 g fiber, 70 g protein (1g/kg adjusted IBW) Monitoring/Evaluations:? F/u in 6 wks Electronically Signed by: Christi Torres Clinical Dietitian [address] [address]
== END ==
PROVIDERS: PCP Family Medicine; Referring Provider Family Medicine
DX: E66.01 Morbid (severe) obesity due to excess calories (principal); Z68.43 Body mass index [BMI] 50.0-59.9, adult; Z71.3 Dietary counseling and surveillance
CPT/HCPCS: 97803

== ENCOUNTER → 2025-01-14 10:55 | Outpatient (CLI) | payer OTHER, SELFPAY ==
--- NOTE | 2025-01-15 10:55 | DIET.OUTPTC ---
Dietary Outpatient Consult Consult Date:01/14/25 Assessment:? 29 y F referred to dietitian for Z68.43 Body mass index [BMI] 50.0-59.9, E66.01Morbid (severe) obesity due to excess calories Pt reports 50 lb weight loss since starting medication. BMs are still formed 2x/d. 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 Doing 7-8k steps daily. Needs quicker breakfast options so went with cereal. Diet Recall: B-life or cherrios cereal with lactose free 2% milk L-KIND bar and apple D-meat 4 oz, CHO, veg; sometimes skipping dinner d/t late nights, will come home and sometimes have small snack instead of dinner while doing homework like Built bar (15 g protein)/string cheese *pt reports not being able to eat right before lying down and going to sleep bc causes severe acid reflux and vomiting* but able to eat when come home and do homework for a few hours before sleeping avg 45 g protein Nutrition Diagnosis:? (Improved) Altered GI function r/t changes in GI structure/function aeb diarrhea within 30 minutes after eating after cholecystectomy Physical inactivity r/t busy life with school and kid as evidenced by <150 minutes of moderate intensity activity per week Inadequate protein intake r/t busy with school, lower appetite as evidenced by <70 g protein intake per diet recall with reported 50 lb weight loss Interventions:? Discussed and provided appropriate resources on the following: -Aiming for 70 g protein at least daily (no PA so can do 1g/kg adj. IBW, would increase to 1.2g/kg adj IBW if doing physical activity/resistance training) -Easy protein sources, brainstorming ideas for when working late nights, provided handout with high protein foods and goal Goals: -protein shake in morning- premier protein 30 g can still do cereal too; aiming for at least 20 g protein in morning -Higher protein snack if skipping dinner like 1 cup cottage cheese, small curd (20-25 g protein) EER:? 25-28 g fiber, 70 g protein (1g/kg adjusted IBW) Monitoring/Evaluations:? F/u in 2025 Electronically Signed by: Marlena Brown Clinical Dietiti[address] [address]
== END ==
LOC: DIET 10:55
PROVIDERS: PCP Family Medicine; Referring Provider Family Medicine
DX: E66.01 Morbid (severe) obesity due to excess calories (principal); Z68.43 Body mass index [BMI] 50.0-59.9, adult; Z71.3 Dietary counseling and surveillance
CPT/HCPCS: 97803

== ENCOUNTER → 2025-01-24 09:36 | Outpatient (CLI) | payer OTHER, SELFPAY ==
[2025-01-24 11:25] LABS: Influenza A - CEPHEID Flu A NEGATIVE (NEGATIVE); Influenza B - CEPHEID Flu B NEGATIVE (NEGATIVE)
[2025-01-24 11:47] LABS: COVID-19 CEPHEID 4-PLEX PCR Negative (Negative)
== END ==
LOC: LAB 09:38
PROVIDERS: PCP Family Medicine; Visit Provider Family Medicine
DX: J02.9 Acute pharyngitis, unspecified (principal); J11.1 Influenza due to unidentified influenza virus with other respiratory manifestations
CPT/HCPCS: 87637